=== PATIENT | female | born 1995 | race Hispanic/Latino ===

== ENCOUNTER 2018-05-17 19:12 | Emergency (ER) | payer SELFPAY ==
[2018-05-17] MEDS ORDERED: ACETAMINOPHEN 500 MG TAB ONE (20:03)
--- NOTE | 2018-05-17 20:44 | ER ---
Nurse's Notes [facility] Name: Radha Capps Age: 22 yrs Sex: Female : 1995 Arrival Date: 05/17/2018 Time: 19:13 Bed 11 Private MD: Diagnosis: Otitis externa in other diseases classified elsewhere, left ear Presentation: 05/17 19:27 Presenting complaint: Patient states: that she is having left ear pain with yellow fc drainage that started 3 days ago. Transition of care: patient was not received from another setting of care. Onset of symptoms was May 16, 2018. Risk Assessment: Do you want to hurt yourself or someone else? Patient reports no desire to harm self or others. 19:27 Method Of Arrival: Ambulatory 19:27 Acuity: HEIDI 4 19:29 Care prior to arrival: Medication(s) given: aleve taken this am. 19:45 Initial Sepsis Screen: Does the patient meet any 2 criteria? No. Patient's initial ea sepsis screen is negative. Does the patient have a suspected source of infection? No. Patient's initial sepsis screen is negative. Triage Assessment: 19:30 General: Appears uncomfortable, obese, Behavior is calm, cooperative, appropriate for age. Pain: Complains of pain in left ear Pain currently is 8 out of 10 on a pain scale. Quality of pain is described as aching, Pain began gradually, Is continuous. EENT: Reports decreased hearing in left ear pain in left ear. Neuro: Level of Consciousness is awake, alert, obeys commands, Oriented to person, place, time, situation. Cardiovascular: No deficits noted. Respiratory: No deficits noted. GI: No deficits noted. : No deficits noted. Derm: Skin is pink, warm \T\ dry. Musculoskeletal: Circulation, motion, and sensation intact. Capillary refill < 3 seconds, Range of motion: intact in all extremities. 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 - Social history:: Smoking status: Patient/guardian denies using tobacco. - Ebola Screening: : Patient negative for fever greater than or equal to 101.5 degrees Fahrenheit, and additional compatible Ebola Virus Disease symptoms Patient denies exposure to infectious person Patient denies travel to an Ebola-affected area in the 21 days before illness onset. Screenin:44 Abuse screen: Denies threats or abuse. Nutritional screening: No deficits noted. ea Tuberculosis screening: No symptoms or risk factors identified. Fall Risk None identified. Assessment: 19:47 General: Appears uncomfortable, Behavior is calm, cooperative, appropriate for age. ea Pain: Complains of pain in left ear Pain currently is 8 out of 10 on a pain scale. Quality of pain is described as aching. Neuro: Level of Consciousness is awake, alert, obeys commands, Oriented to person, place, time, situation. Cardiovascular: Patient's skin is warm and dry. Respiratory: Airway is patent Respiratory effort is even, unlabored, Respiratory pattern is regular, symmetrical. GI: No signs and/or symptoms were reported involving the gastrointestinal system. : No signs and/or symptoms were reported regarding the genitourinary system. EENT: Reports decreased hearing in left ear pain in left ear. Derm: Skin is pink, warm \T\ dry. Musculoskeletal: Circulation, motion, and sensation intact. 20:19 Reassessment: Patient and/or family updated on plan of care and expected duration. Pain ea level reassessed. Patient is alert, oriented x 3, equal unlabored respirations, skin warm/dry/pink. 20:50 Reassessment: Patient and/or family updated on plan of care and expected duration. Pain ea level reassessed. Patient is alert, oriented x 3, equal unlabored respirations, skin warm/dry/pink. Discharge instructions given to patient, verbalized the understanding of instruction. Vital Signs: 19:31 BP 128 / 77; Pulse 91; Resp 18; Temp 98.0(O); Pulse Ox 99% on R/A; Weight 131.09 kg fc (R); Height 5 ft. 5 in. (165.10 cm) (R); Pain 8/10; 20:45 BP 122 / 68; Pulse 80; Resp 18; Temp 98.2(O); Pulse Ox 99% ; Pain 5/10; ea 19:31 Body Mass Index 48.09 (131.09 kg, 165.10 cm) ED Course: 19:13 Patient arrived in ED. ds1 19:28 Triage completed. fc 19:31 Arm band placed on Patient placed in an exam room, on a stretcher. fc 19:39 Kai Orosco PA is PHCP. cp 19:39 Orlando Addison MD is Attending Physician. cp 19:44 Nicole Alexander, RN is Primary Nurse. ea 19:45 Patient has correct armband on for positive identification. Bed in low position. Call ea light in reach. 20:42 Jen Alba MD is Referral Physician. cp 20:50 Patient did not have IV access during this emergency room visit. ea 21:06 No provider procedures requiring assistance completed. ea Administered Medications: 20:08 Drug: Tylenol 1000 mg Route: PO; ea 20:31 Follow up: Response: No adverse reaction; Marked relief of symptoms ea 20:37 Not Given (not available): CIPRODEX 4 drops Otic in left ear once ea Outcome: 20:43 Discharge ordered by MD. cp 20:50 Discharged to home ambulatory. ea 20:50 Condition: improved 20:50 Discharge instructions given to patient, Instructed on discharge instructions, follow up and referral plans. medication usage, Demonstrated understanding of instructions, follow-up care, medications, Prescriptions given X 3. 21:07 Patient left the ED. ea Signatures: Sheila Bradley, RN RN Seamus Maryan ds1 Kai Orosco PA PA cp Antunez, Elena, RN LAMONT kaufman
--- NOTE | 2018-05-17 20:44 | EDPHYS ---
Physician Documentation [facility] Name: Radha Capps Age: 22 yrs Sex: Female : 1995 Arrival Date: 05/17/2018 Time: 19:13 Bed 11 Private MD: ED Physician Orlando Addison HPI: 05/17 20:15 This 22 yrs old Female presents to ER via Ambulatory with complaints of Ear cp Pain. 20:15 The patient presents with drainage, that is purulent, pain, that is acute. The cp complaints affect the left ear. 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 - Social history:: Smoking status: Patient/guardian denies using tobacco. - Ebola Screening: : Patient negative for fever greater than or equal to 101.5 degrees Fahrenheit, and additional compatible Ebola Virus Disease symptoms Patient denies exposure to infectious person Patient denies travel to an Ebola-affected area in the 21 days before illness onset. ROS: 20:25 Eyes: Negative for injury, pain, redness, and discharge. cp 20:25 Constitutional: Negative for body aches, chills, fever, poor PO intake. 20:25 ENT: Positive for drainage from ear(s), ear pain, Negative for rhinorrhea, sinus congestion, sore throat, difficulty swallowing, difficulty handling secretions, hoarseness. 20:25 Neck: Negative for pain with movement, pain at rest, stiffness, swollen nodes, tenderness, bony tenderness. 20:25 Cardiovascular: Negative for chest pain, edema, palpitations. 20:25 Respiratory: Negative for cough, shortness of breath, wheezing. 20:25 Abdomen/GI: Negative for abdominal pain, vomiting, diarrhea, constipation, black/tarry stool, rectal bleeding. 20:25 Skin: Negative for cellulitis, rash. 20:25 Neuro: Negative for altered mental status, weakness. 20:25 All other systems are negative. Exam: 20:33 Constitutional: The patient appears in no acute distress, alert, awake, non-toxic, well cp developed, well nourished, uncomfortable. 20:33 Eyes: Pupils equal round and reactive to light, extra-ocular motions intact. Lids and cp lashes normal. Conjunctiva and sclera are non-icteric and not injected. Cornea within normal limits. Periorbital areas with no swelling, redness, or edema. 20:33 Head/face: Noted is swelling, that is mild, of the left ear, tenderness, that is moderate, of the left ear. 20:33 ENT: External ear(s): pain with movement, that is moderate, of the pinna of left ear and left ear canal, swelling, on the left ear, mild, Ear canal(s): purulent discharge, in the left canal, mild, swelling, that is moderate, of the left canal, TM's: not visable, because of discharge, swelling, Examination of the other ear shows no obvious abnormality, Nose: is normal, Mouth: Lips: moist, Oral mucosa: pink and intact, moist, Tongue: is normal, Posterior pharynx: is normal, airway is patent, no erythema, no exudate. 20:33 Neck: ROM/movement: is normal, is supple, without pain, no range of motions limitations, no meningismus, no nuchal rigidity, Lymph nodes: no appreciated lymphadenopathy. Vital Signs: 19:31 BP 128 / 77; Pulse 91; Resp 18; Temp 98.0(O); Pulse Ox 99% on R/A; Weight 131.09 kg fc (R); Height 5 ft. 5 in. (165.10 cm) (R); Pain 8/10; 20:45 BP 122 / 68; Pulse 80; Resp 18; Temp 98.2(O); Pulse Ox 99% ; Pain 5/10; ea 19:31 Body Mass Index 48.09 (131.09 kg, 165.10 cm) MDM: 19:40 Patient medically screened. cp 20:00 Differential diagnosis: otitis media, otitis externa, ruptured TM, acute otalgia, cp cerumen impaction. 20:42 Data reviewed: vital signs, nurses notes, and as a result, I will discharge patient. 05/17 20:36 Order name: Urine Dipstick--Ancillary (enter results) 05/17 20:36 Order name: Urine --Ancillary (enter results) 05/17 19:52 Order name: Urine Test (obtain specimen); Complete Time: 20:25 cp 05/17 19:52 Order name: Urine Dipstick-Ancillary (obtain specimen); Complete Time: 20:25 cp 05/17 19:52 Order name: Misc. Order: ear kit; Complete Time: 20:13 cp Administered Medications: 20:08 Drug: Tylenol 1000 mg Route: PO; ea 20:31 Follow up: Response: No adverse reaction; Marked relief of symptoms ea 20:37 Not Given (not available): CIPRODEX 4 drops Otic in left ear once ea Disposition: 05/18 08:00 Co-signature as Attending Physician, Orlando Addison MD Available for consultation at ps1 all times.. Disposition: 05/17/18 20:43 Discharged to Home. Impression: Otitis externa in other diseases classified elsewhere, left ear. - Condition is Stable. - Discharge Instructions: Ear Drops, Adult, Otitis Externa. - Prescriptions for Ibuprofen 800 mg Oral Tablet - take 1 tablet by ORAL route every 8 hours As needed take with food; 30 tablet. Cipro 500 mg Oral Tablet - take 1 tablet by ORAL route every 12 hours for 10 days; 20 tablet. Ciprodex 0.3- 0.1 % Otic Drops, Suspension - instill 4 drops by OTIC route every 12 hours for 7 days , for ears ONLY. instill drops in left ear canal; 1 Container. - Medication Reconciliation Form, Thank You Letter, Antibiotic Education, Prescription Opioid Use form. - Follow up: Jen Alba MD; When: 48 Hours; Reason: Recheck today's complaints. - Problem is new. - Symptoms have improved. Signatures: Dispatcher [employer] Sheila Sandra RN RN Kai Marvin PA PA cp Antunez, Elena, RN RN Orlando Vale MD MD ps1 Corrections: (The following items were deleted from the chart) 05/17 21:07 20:43 05/17/2018 20:43 Discharged to Home. Impression: Otitis externa in other diseases ea classified elsewhere, left ear. Condition is Stable. Forms are Medication Reconciliation Form, Thank You Letter, Antibiotic Education, Prescription Opioid Use. Follow up: Jen Alba; When: 48 Hours; Reason: Recheck today's complaints. Problem is new. Symptoms have improved. cp
[2018-05-17 21:40] LABS: Urine Blood NEGATIVE (NEG); Urine Glucose NEGATIVE (NEG); Urine Protein 1+ (NEG); Urine pH 6.5 (5.0-7.0)
== END 2018-05-17 21:07 | disposition home or self-care (01) ==
LOC: ER 19:12
DX: H60.92 Unspecified otitis externa, left ear (principal)
CPT/HCPCS: 81003; 81025; 99283

== ENCOUNTER 2019-01-01 21:14 | Emergency (ER) | payer SELFPAY ==
[2019-01-01] MEDS ORDERED: FENTANYL CITR 100 MCG/2 ML ONE (22:20)
[2019-01-01] MEDS ORDERED: NA CHLORIDE 0.9% 1,000 ML ONE (22:21)
[2019-01-01] MEDS ORDERED: ONDANSETRON 4 MG/2 ML VIAL ONE (22:21)
[2019-01-01 22:42] LABS: Urine Blood NEGATIVE (NEG); Urine Glucose 2+ (NEG); Urine Protein 2+ (NEG); Urine pH 5.5 (5.0-7.0)
[2019-01-01 22:56] LABS: Absolute Lymphocytes (CBC) 2.8 K/uL (0.7-4.9); Absolute Monocytes 0.9 K/uL (0.1-1.3); Absolute Neutrophil 4.9 K/uL (1.8-8.0); Basophils % 0.2 % (0-1.3); Eosinophils % 6.4 % (0-4.4); Lymphocytes % 30.9 % (15.3-44.8); MPV 9.4 fL (7.6-11.3); Monocytes % 9.5 % (3.3-12.3); RBC Red Blood Cell Count 4.75 M/uL (3.86-4.86)
[2019-01-01 23:00] LABS: Urine Bacteria 20-50 /HPF (<20); Urine Culture Reflex Order REFLEXED; Urine RBC <5 /HPF (NONE SEEN); Urine Yeast PRESENT (NONE SEEN)
[2019-01-01 23:05] LABS: ALT/SGPT 45 U/L (12-78); AST/SGOT 66 U/L (15-37); Alkaline Phosphatase 108 U/L (45-117); BUN Blood Urea Nitrogen 8 mg/dL (7-18); Bicarbonate 23 mmol/L (21-32); Bilirubin Direct 0.1 mg/dL (0-0.2); Bilirubin Total 1.2 mg/dL (0.2-1.0); Glucose Level 315 mg/dL (74-106); Lipase 290 U/L (73-393); Potassium 4.4 mmol/L (3.5-5.1); Protein, Total 8.7 g/dL (6.4-8.2); Sodium Level 136 mmol/L (136-145)
[2019-01-01] MEDS ORDERED: KETOROLAC 30 MG/ML INJ ONE (23:59)
--- NOTE | 2019-01-02 01:12 | ER ---
Nurse's Notes [facility] Name: Radha Capps Age: 23 yrs Sex: Female : 1995 Arrival Date: 01/01/2019 Time: 21:17 Bed 24 Private MD: Diagnosis: Upper abdominal pain, unspecified Presentation: 01/01 21:27 Presenting complaint: Patient states: Today at 3:00 she made herself something to eat, aj1 since then she has had LUQ pain that radiates to the back. Patient reports diarrhea, denies N/V. Denies fever. Transition of care: patient was not received from another setting of care. Onset of symptoms was January 01, 2019 at 15:00. Risk Assessment: Do you want to hurt yourself or someone else? Patient reports no desire to harm self or others. Initial Sepsis Screen: Does the patient meet any 2 criteria? No. Patient's initial sepsis screen is negative. Does the patient have a suspected source of infection? No. Patient's initial sepsis screen is negative. Care prior to arrival: None. 21:27 Method Of Arrival: Ambulatory aj 21:27 Acuity: HEIDI 3 aj1 Triage Assessment: 21:29 General: Appears in no apparent distress. uncomfortable, Behavior is calm, cooperative, aj1 appropriate for age. Pain: Complains of pain in left upper quadrant. 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 - Social history:: Smoking status: Patient/guardian denies using tobacco. - Ebola Screening: : Patient denies travel to an Ebola-affected area in the 21 days before illness onset. Screenin:30 Abuse screen: Denies threats or abuse. Denies injuries from another. Nutritional aj1 screening: No deficits noted. Tuberculosis screening: No symptoms or risk factors identified. 01/02 01:32 Fall Risk IV access (20 points). mg2 Assessment: 01/01 21:30 General: Appears in no apparent distress. uncomfortable, Behavior is calm, cooperative, aj1 appropriate for age. Pain: Complains of pain in left upper quadrant Pain radiates to back Pain currently is 9 out of 10 on a pain scale. Quality of pain is described as stabbing, Pain began 6 hours ago. Neuro: Level of Consciousness is awake, alert, obeys commands. Cardiovascular: Patient's skin is warm and dry. Respiratory: Airway is patent Respiratory effort is even, unlabored, Respiratory pattern is regular, symmetrical. GI: Abdomen is non-distended, Bowel sounds present X 4 quads. Abd is soft X 4 quads Abdomen is tender to palpation in left upper quadrant Reports upper abdominal pain, diarrhea, Patient currently denies nausea, vomiting. : No signs and/or symptoms were reported regarding the genitourinary system. EENT: No signs and/or symptoms were reported regarding the EENT system. Derm: No signs and/or symptoms reported regarding the dermatologic system. Skin is pink, warm \T\ dry. normal. Musculoskeletal: No signs and/or symptoms reported regarding the musculoskeletal system. Circulation, motion, and sensation intact. 22:50 Reassessment: Patient appears in no apparent distress at this time. No changes from aj1 previously documented assessment. Patient and/or family updated on plan of care and expected duration. Pain level reassessed. Patient is alert, oriented x 3, equal unlabored respirations, skin warm/dry/pink. 23:37 Reassessment: Patient states that the pain medication we gave her did not bring her aj1 pain down to a tolerable level. Notified Dr Barrientos. Vital Signs: 21:29 BP 133 / 74; Pulse 116; Resp 20; Pulse Ox 98% on R/A; Weight 126.55 kg (R); Height 5 aj1 ft. 5 in. (165.10 cm) (R); Pain 9/10; 23:37 BP 117 / 65; Pulse 102; Resp 18; Pulse Ox 97% on R/A; aj1 23:51 Temp 98.1(TE); aj1 01/02 00:47 BP 116 / 61; Pulse 101; Resp 18; Pulse Ox 97% on R/A; mg2 01/01 21:29 Body Mass Index 46.43 (126.55 kg, 165.10 cm) aj ED Course: 01/01 21:17 Patient arrived in ED. am2 21:22 Mauricio Barrientos MD is Attending Physician. gs 21:27 Isis Guevara RN is Primary Nurse. aj1 21:28 Triage completed. aj1 21:29 Arm band placed on Patient placed in an exam room. aj1 21:30 Patient has correct armband on for positive identification. Bed in low position. Call aj1 light in reach. Side rails up X 1. 21:30 No provider procedures requiring assistance completed. aj1 22:30 Note: neg upt per pts nurse,michael ybarra. Radiology exam delayed due to test not mw3 completed at this time. 22:59 CT Stone Protocol In Process Unspecified. EDNJ 01/02 01:11 Roel Theodore MD is Referral Physician. 01:31 IV discontinued, intact, bleeding controlled, No redness/swelling at site. Pressure mg2 dressing applied. Administered Medications: 01/01 22:31 Drug: NS 0.9% 1000 ml Route: IV; Rate: 1 bolus; Site: right antecubital; aj1 01/02 00:29 Follow up: IV Status: Completed infusion; IV Intake: 1000ml aj1 01/01 22:32 Drug: Zofran 4 mg Route: IVP; Site: right antecubital; aj01/02 00:29 Follow up: Response: No adverse reaction aj1 01/01 22:32 Drug: fentaNYL (PF) 25 mcg Route: IVP; Site: right antecubital; aj01/02 00:30 Follow up: Response: No adverse reaction aj1 01/01 23:52 Drug: TORadol 30 mg Route: IVP; Site: right antecubital; aj01/02 00:30 Follow up: Response: No adverse reaction aj1 Intake: 00:29 IV: 1000ml; Total: 1000ml. aj1 Outcome: 01:11 Discharge ordered by . gs 01:31 Discharged to home ambulatory, with family. mg2 01:31 Condition: stable 01:31 Discharge instructions given to patient, family, Instructed on discharge instructions, follow up and referral plans. medication usage, Demonstrated understanding of instructions, follow-up care, medications, Prescriptions given X 2. 01:32 Patient left the ED. mg2 Signatures: Dispatcher [employer] [facility] Isis Guevara RN RN aj1 Yasemin Fontaine am2 Mauricio Barrientos MD MD gs Yefri Sams, RN RN mg2 Patricia Anguiano mw3
--- NOTE | 2019-01-02 01:12 | EDPHYS ---
Physician Documentation [facility] Name: Radha Capps Age: 23 yrs Sex: Female : 1995 Arrival Date: 01/01/2019 Time: 21:17 Bed 24 Private MD: ED Physician Mauricio Barrientos HPI: 01/02 01:08 This 23 yrs old Female presents to ER via Ambulatory with complaints of Flank gs Pain. 01:08 The patient complains of pain in the left low back. The pain radiates to the left lower gs quadrant. Onset: The symptoms/episode began/occurred yesterday. Modifying factors: The symptoms are alleviated by nothing. the symptoms are aggravated by nothing. Associated signs and symptoms: Pertinent positives: diarrhea. Severity of pain: At its worst the pain was moderate in the emergency department the pain is unchanged. The patient has experienced similar episodes in the past, a few times. The patient has not recently seen a physician. 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 - Social history:: Smoking status: Patient/guardian denies using tobacco. - Ebola Screening: : Patient denies travel to an Ebola-affected area in the 21 days before illness onset. ROS: 01/02 01:08 All other systems are negative. gs Exam: 01:08 Head/Face: Normocephalic, atraumatic. Eyes: Pupils equal round and reactive to light, gs extra-ocular motions intact. Lids and lashes normal. Conjunctiva and sclera are non-icteric and not injected. Cornea within normal limits. Periorbital areas with no swelling, redness, or edema. ENT: Nares patent. No nasal discharge, no septal abnormalities noted. Tympanic membranes are normal and external auditory canals are clear. Oropharynx with no redness, swelling, or masses, exudates, or evidence of obstruction, uvula midline. Mucous membranes moist. Neck: Trachea midline, no thyromegaly or masses palpated, and no cervical lymphadenopathy. Supple, full range of motion without nuchal rigidity, or vertebral point tenderness. No Meningismus. Chest/axilla: Normal chest wall appearance and motion. Nontender with no deformity. No lesions are appreciated. Cardiovascular: Regular rate and rhythm with a normal S1 and S2. No gallops, murmurs, or rubs. Normal PMI, no JVD. No pulse deficits. Respiratory: Lungs have equal breath sounds bilaterally, clear to auscultation and percussion. No rales, rhonchi or wheezes noted. No increased work of breathing, no retractions or nasal flaring. Back: No spinal tenderness. No costovertebral tenderness. Full range of motion. Skin: Warm, dry with normal turgor. Normal color with no rashes, no lesions, and no evidence of cellulitis. MS/ Extremity: Pulses equal, no cyanosis. Neurovascular intact. Full, normal range of motion. Neuro: Awake and alert, GCS 15, oriented to person, place, time, and situation. Cranial nerves II-XII grossly intact. Motor strength 5/5 in all extremities. Sensory grossly intact. Cerebellar exam normal. Normal gait. 01:08 Constitutional: The patient appears alert, awake, uncomfortable. 01:08 Abdomen/GI: Palpation: moderate abdominal tenderness, in the epigastric area, posterior aspect of left lateral abdomen and left upper quadrant, rebound tenderness, is not appreciated. Vital Signs: 01/01 21:29 BP 133 / 74; Pulse 116; Resp 20; Pulse Ox 98% on R/A; Weight 126.55 kg (R); Height 5 aj1 ft. 5 in. (165.10 cm) (R); Pain 9/10; 23:37 BP 117 / 65; Pulse 102; Resp 18; Pulse Ox 97% on R/A; aj1 23:51 Temp 98.1(TE); aj1 01/02 00:47 BP 116 / 61; Pulse 101; Resp 18; Pulse Ox 97% on R/A; mg2 01/01 21:29 Body Mass Index 46.43 (126.55 kg, 165.10 cm) aj1 MDM: 01/01 21:45 Patient medically screened. 01/02 01:08 Differential diagnosis: nephrolithiasis, pyelonephritis, UTI, diverticulitis, gs pancreatitis. Data reviewed: vital signs, nurses notes. Counseling: I had a detailed discussion with the patient and/or guardian regarding: the historical points, exam findings, and any diagnostic results supporting the discharge/admit diagnosis, lab results, radiology results, the need for outpatient follow up. Response to treatment: the patient's symptoms have markedly improved after treatment, the patient's symptoms have resolved after treatment, and as a result, I will discharge patient. 01/01 21:49 Order name: Basic Metabolic Panel; Complete Time: 23:40 01/01 21:49 Order name: CBC with Diff; Complete Time: 23:40 01/01 21:49 Order name: Hepatic Function; Complete Time: 23:40 gs 01/01 21:49 Order name: Lipase; Complete Time: 23:40 01/01 21:49 Order name: Urine Microscopic Only; Complete Time: 23:40 01/01 22:38 Order name: Urine Dipstick--Ancillary (enter results); Complete Time: 23:40 mw2 01/01 21:49 Order name: IV Saline Lock; Complete Time: 22:32 01/01 21:49 Order name: CT Stone Protocol 01/01 22:38 Order name: Urine --Ancillary (enter results); Complete Time: 23:40 mw2 01/01 23:01 Order name: Urine Culture [facility] 01/01 21:49 Order name: Labs collected and sent; Complete Time: 22:32 gs 01/01 21:49 Order name: Urine Test (obtain specimen); Complete Time: 22:32 gs 01/01 21:49 Order name: Urine Dipstick-Ancillary (obtain specimen); Complete Time: 22:32 gs Administered Medications: 01/01 22:31 Drug: NS 0.9% 1000 ml Route: IV; Rate: 1 bolus; Site: right antecubital; 01/02 00:29 Follow up: IV Status: Completed infusion; IV Intake: 1000ml 01/01 22:32 Drug: Zofran 4 mg Route: IVP; Site: right antecubital; 01/02 00:29 Follow up: Response: No adverse reaction 01/01 22:32 Drug: fentaNYL (PF) 25 mcg Route: IVP; Site: right antecubital; 01/02 00:30 Follow up: Response: No adverse reaction 01/01 23:52 Drug: TORadol 30 mg Route: IVP; Site: right antecubital; aj1 01/02 00:30 Follow up: Response: No adverse reaction aj1 Disposition: 01/02/19 01:11 Discharged to Home. Impression: Upper abdominal pain, unspecified. - Condition is Stable. - Discharge Instructions: Abdominal Pain, Adult. - Prescriptions for Bentyl 20 mg Oral Tablet - take 1 tablet by ORAL route every 12 hours As needed; 10 tablet. Pepcid 20 mg Oral Tablet - take 1 tablet by ORAL route 2 times per day; 30 tablet. - Medication Reconciliation Form, Thank You Letter, Antibiotic Education, Prescription Opioid Use form. - Follow up: Roel Theodore MD; When: 2 - 3 days; Reason: Re-evaluation by your physician. Signatures: Dispatcher [employer] Isis Gonzalez RN RN aj1 Mauricio Barrientos MD MD gs Yefri Sams RN RN mg2 Corrections: (The following items were deleted from the chart) 01:32 01:11 01/02/2019 01:11 Discharged to Home. Impression: Upper abdominal pain, mg2 unspecified. Condition is Stable. Forms are Medication Reconciliation Form, Thank You Letter, Antibiotic Education, Prescription Opioid Use. Follow up: Roel Theodore; When: 2 - 3 days; Reason: Re-evaluation by your physician. gs
--- NOTE | 2019-01-02 15:24 | RAD REPORT ---
EXAM DESCRIPTION: Stone Protocol. CLINICAL HISTORY: 23 years Female FLANK PAIN. COMPARISON: None. TECHNIQUE: Images obtained in axial, sagittal, and coronal planes. No oral or intravenous contrast was administe red. This exam was performed according to our departmental dose-optimization program, which includes autom ated exposure control, adjustment of the mA and/or kV according to patient size and/or less of iterat tano reconstruction technique. FINDINGS: Enlarged liver with decreased attenuation consistent with fatty change. Multiple calcified gallstones within the gallbladder. No associated gallbladder wall thickening. Spleen is enlarged vivian suring 14 cm in greatest dimension. Unremarkable pancreas and adrenal glands bilaterally. No obstructing renal calcifications bilaterally. No hydronephrosis bilaterally. Unremarkable bladder. Appendix is not well identified however no secondary signs for appendicitis. No bowel obstruction, pe rforation, or inflammation. No dilatation abdominal aorta. No adenopathy or abdominal fluid collections seen. No acute osseous abnormality. No abnormalities of the lower lungs bilaterally. IMPRESSION: Hepatosplenomegaly with fatty change involving the liver. Cholelithiasis. Electronically signed by: Elizabeth Vazquez MD 01/01/2019 11:12 PM STUDENT ADVISOR Due to temporary technical issues with the PACS/Fluency reporting system, reports are being signed by the in house radiologist as a courtesy to ensure prompt reporting. The interpreting radiologist is f ully responsible for the content of the report.
== END 2019-01-02 01:32 | disposition home or self-care (01) ==
LOC: ER 21:14
DX: R10.10 Upper abdominal pain, unspecified (principal)
CPT/HCPCS: 36415; 74176; 76377; 80048; 80076; 81003; 81015; 81025; 83690; 85025; 87086; 87088; 96361; 96374; 96375; 99283; J2405; J3010; J7030

== ENCOUNTER 2019-01-02 22:11 | Emergency (ER) | payer SELFPAY ==
[2019-01-02] MEDS ORDERED: ONDANSETRON 4 MG/2 ML VIAL ONE (23:42)
[2019-01-02] MEDS ORDERED: FENTANYL CITR 100 MCG/2 ML ONE (23:42)
[2019-01-02] MEDS ORDERED: NA CHLORIDE 0.9% 1,000 ML ONE (23:42)
[2019-01-03 00:02] LABS: Absolute Lymphocytes (CBC) 1.8 K/uL (0.7-4.9); Absolute Monocytes 0.6 K/uL (0.1-1.3); Absolute Neutrophil 10.2 K/uL (1.8-8.0); Basophils % 0.8 % (0-1.3); Eosinophils % 0.2 % (0-4.4); Hematocrit 40.9 % (36.0-45.0); Lymphocytes % 14.1 % (15.3-44.8); MPV 10.7 fL (7.6-11.3); Monocytes % 4.5 % (3.3-12.3); RBC Red Blood Cell Count 4.82 M/uL (3.86-4.86)
[2019-01-03 02:10] LABS: ALT/SGPT 32 U/L (12-78); AST/SGOT 24 U/L (15-37); Albumin 3.6 g/dL (3.4-5.0); Alkaline Phosphatase 103 U/L (45-117); BUN Blood Urea Nitrogen 5 mg/dL (7-18); Bicarbonate 13 mmol/L (21-32); Bilirubin Direct 0.4 mg/dL (0-0.2); Bilirubin Total 1.8 mg/dL (0.2-1.0); Glucose Level 305 mg/dL (74-106); Lipase 740 U/L (73-393); Protein, Total 8.3 g/dL (6.4-8.2); Sodium Level 135 mmol/L (136-145)
[2019-01-03] MEDS ORDERED: ONDANSETRON 4 MG/2 ML VIAL ONE (02:15)
[2019-01-03] MEDS ORDERED: HYDROMORPHONE HCL 2 MG/ML inj ONE ×2 (02:15→05:31)
[2019-01-03] MEDS ORDERED: NA CHLORIDE 0.9% 1,000 ML ONE ×2 (02:15→04:05)
[2019-01-03] MEDS ORDERED: INSULIN -REGULAR HUMAN 50 UNIT/0.5 ML ML ONE (04:00)
[2019-01-03] MEDS ORDERED: NA CHLORIDE 0.9% 100 ML IV ONE (04:01)
--- NOTE | 2019-01-03 04:03 | ER ---
Nurse's Notes [facility] Name: Radha Capps Age: 23 yrs Sex: Female : 1995 Arrival Date: 01/02/2019 Time: 22:37 Bed 19 Private MD: Diagnosis: Acute pancreatitis;Type 1 diabetes mellitus with ketoacidosis Presentation: 01/02 22:45 Presenting complaint: Patient states: that she is having upper abd pain, nausea, fc vomiting and fever that started 2 days ago. Was here yesterday and she states "I was told nothing was wrong but given 2 medications: Dicyclomine and famotidine.". Transition of care: patient was not received from another setting of care. Onset of symptoms was January 01, 2019. Risk Assessment: Do you want to hurt yourself or someone else? Patient reports no desire to harm self or others. Initial Sepsis Screen: Does the patient meet any 2 criteria? HR > 90 bpm. Yes Does the patient have a suspected source of infection? No. Patient's initial sepsis screen is negative. Care prior to arrival: Medication(s) given: Tylenol, last at 1800. 22:45 Method Of Arrival: Ambulatory fc 22:45 Acuity: HEIDI 3 fc POWER ENGINEER: 22:48 LMP 01/02/2019 fc Historical: - Allergies: 22:48 No Known Allergies; fc - Home Meds: 22:48 None [Active]; fc - PMHx: 22:48 None; fc - PSHx: 22:48 Tonsillectomy; ; fc - Immunization history:: Last tetanus immunization: unknown, Flu vaccine is not up to date. - Social history:: Smoking status: Patient/guardian denies using tobacco. - Ebola Screening: : Patient negative for fever greater than or equal to 101.5 degrees Fahrenheit, and additional compatible Ebola Virus Disease symptoms Patient denies exposure to infectious person Patient denies travel to an Ebola-affected area in the 21 days before illness onset. Screenin/05 00:00 Abuse screen: Denies threats or abuse. Nutritional screening: No deficits noted. jb4 Tuberculosis screening: No symptoms or risk factors identified. Fall Risk None identified. Assessment: 01/02 23:05 General: Appears in no apparent distress. uncomfortable, Behavior is calm, cooperative, jb4 appropriate for age. Pain: Complains of pain in abdomen Pain does not radiate. Pain currently is 9 out of 10 on a pain scale. Quality of pain is described as crampy. Neuro: Level of Consciousness is awake, alert, obeys commands, Oriented to person, place, time, situation. Cardiovascular: Patient's skin is warm and dry. Respiratory: Airway is patent Respiratory effort is even, unlabored, Respiratory pattern is regular, symmetrical. GI: Bowel sounds present X 4 quads. Abd is soft X 4 quads Abd is non tender in right upper quadrant and right lower quadrant Abdomen is tender to palpation in epigastric area, umbilical area, left upper quadrant and left lower quadrant. : No signs and/or symptoms were reported regarding the genitourinary system. EENT: No signs and/or symptoms were reported regarding the EENT system. Derm: Skin is intact, Skin is pink, warm \\T\\ dry. Musculoskeletal: Circulation, motion, and sensation intact. 01/03 00:00 Reassessment: Patient appears in no apparent distress at this time. Patient and/or jb4 family updated on plan of care and expected duration. Pain level reassessed. Patient is alert, oriented x 3, equal unlabored respirations, skin warm/dry/pink. 01:00 Reassessment: Patient appears in no apparent distress at this time. Patient and/or jb4 family updated on plan of care and expected duration. Pain level reassessed. Patient is alert, oriented x 3, equal unlabored respirations, skin warm/dry/pink. 02:00 Reassessment: Patient appears in no apparent distress at this time. Patient and/or jb4 family updated on plan of care and expected duration. Pain level reassessed. Patient is alert, oriented x 3, equal unlabored respirations, skin warm/dry/pink. 03:00 Reassessment: Patient appears in no apparent distress at this time. Patient and/or jb4 family updated on plan of care and expected duration. Pain level reassessed. Patient is alert, oriented x 3, equal unlabored respirations, skin warm/dry/pink. 04:00 Reassessment: Patient appears in no apparent distress at this time. Patient and/or jb4 family updated on plan of care and expected duration. Pain level reassessed. Patient is alert, oriented x 3, equal unlabored respirations, skin warm/dry/pink. 05:00 Reassessment: Patient appears in no apparent distress at this time. Patient and/or jb4 family updated on plan of care and expected duration. Pain level reassessed. Patient is alert, oriented x 3, equal unlabored respirations, skin warm/dry/pink. 05:37 Reassessment: Patient appears in no apparent distress at this time. Patient and/or jb4 family updated on plan of care and expected duration. Pain level reassessed. Patient is alert, oriented x 3, equal unlabored respirations, skin warm/dry/pink. Pt transported out via EMS. Vital Signs: 01/02 22:48 BP 126 / 81; Pulse 130; Resp 22; Temp 99.9(O); Pulse Ox 97% on R/A; Weight 124.28 kg fc (R); Height 5 ft. 5 in. (165.10 cm) (R); Pain 10/10; 23:00 BP 125 / 78; Pulse 122; Resp 16; Pulse Ox 98% on R/A; jb4 01/03 01:00 BP 115 / 79; Pulse 120; Resp 16; Pulse Ox 95% on R/A; jb4 03:00 BP 107 / 78; Pulse 122; Resp 16; Pulse Ox 97% on R/A; jb4 04:00 BP 119 / 72; Pulse 133; Resp 18; Pulse Ox 96% on R/A; jb4 05:00 BP 122 / 75; Pulse 86; Resp 16; Pulse Ox 97% on R/A; jb4 01/02 22:48 Body Mass Index 45.60 (124.28 kg, 165.10 cm) ED Course: 01/02 22:37 Patient arrived in ED. es 22:44 Mauricio Barrientos MD is Attending Physician. gs 22:47 Triage completed. fc 22:48 Arm band placed on Patient placed in an exam room, on a stretcher. 23:01 Keven David, LAMONT is Primary Nurse. [facility] 23:50 Missed attempt(s): 20 gauge in right antecubital area. mt 01/03 00:00 Patient has correct armband on for positive identification. Bed in low position. Call jb4 light in reach. Side rails up X 1. Pulse ox on. NIBP on. 00:27 Inserted saline lock: 20 gauge in left antecubital area, using aseptic technique. bb 02:11 Notified ED physician of a critical lab result(s). Bicarb 13 Dr Barrientos notified. bb 02:17 Keven David, RN is Primary Nurse. jb4 02:41 CT Abd/Pelvis - W/Contrast In Process Unspecified. EDMS 05:39 No provider procedures requiring assistance completed. Patient transferred, IV remains jb4 in place. Administered Medications: 00:27 Drug: NS 0.9% 1000 ml Route: IV; Rate: 1 bolus; Site: left antecubital; bb 03:27 Follow up: Response: No adverse reaction; IV Status: Completed infusion jb4 00:47 Drug: Zofran 4 mg Route: IVP; Site: left antecubital; jb4 01:29 Follow up: Response: No adverse reaction; Nausea is decreased jb4 00:49 Drug: fentaNYL (PF) 50 mcg Route: IVP; Site: left antecubital; jb4 01:29 Follow up: Response: No adverse reaction; Pain is decreased jb4 02:10 Drug: Zofran 4 mg Route: IVP; Site: left antecubital; jb4 03:16 Follow up: Response: No adverse reaction; Nausea is decreased jb4 02:12 Drug: Dilaudid 1 mg Route: IVP; Site: left antecubital; jb4 03:16 Follow up: Response: No adverse reaction; Pain is decreased jb4 03:30 Drug: NS 0.9% 1000 ml Route: IV; Rate: 1 bolus; Site: left antecubital; jb4 05:35 Follow up: Response: No adverse reaction; IV Status: Completed infusion jb4 04:00 Drug: cefOXitin 1 grams Route: IVPB; Infused Over: 30 mins; Site: left antecubital; jb4 04:02 Follow up: Response: No adverse reaction; IV Status: Completed infusion jb4 04:02 Drug: NS 0.9% 1000 ml Route: IV; Rate: 175 ml/hr; Site: left antecubital; jb4 05:35 Follow up: Response: No adverse reaction; IV Status: Infusion continued upon transfer jb4 04:20 Drug: Insulin Drip - (Insulin Regular Human 100 units, NS 0.9% 100 ml) {Co-Signature: jb4 aa1 (Marisela Juarez RN).} Route: IV; Rate: 6 units/hr; Site: left antecubital; 05:35 Follow up: Response: No adverse reaction; IV Status: Infusion continued upon transfer jb4 05:20 Drug: Dilaudid 1 mg Route: IVP; Site: left antecubital; jb4 05:36 Follow up: Response: No adverse reaction jb4 Point of Care Testing: Blood Glucose: 03:28 Blood Glucose: 297 mg/dL; jb4 04:00 Blood Glucose: 298 mg/dL; jb4 05:20 Blood Glucose: 264 mg/dL; jb4 Ranges: Outcome: 04:02 ER care complete, transfer ordered by MD. patterson 05:39 Transferred to [facility]. jb4 05:39 Condition: stable 05:39 Discharge instructions given to patient, Instructed on the need for transfer, Demonstrated understanding of instructions. 05:40 Patient left the ED. jb4 Signatures: Dispatcher [employer] Beatriz Grande Felicia, RN RN fc Ballard, Brenda, RN RN bb Bryson, James, RN RN jb4 Janene Willson mt, Gregory, MD MD gs Alissa Kern RN aa1 Corrections: (The following items were deleted from the chart) 03:37 02/04 22:45 Presenting complaint: Patient states: that she is having upper abd pain, fc nausea, vomiting and fever. Was here yesterday and told nothing was wrong but given Dicyclomine and famotidine fc
--- NOTE | 2019-01-03 04:03 | EDPHYS ---
Physician Documentation [facility] Name: Radha Capps Age: 23 yrs Sex: Female : 1995 Arrival Date: 01/02/2019 Time: 22:37 Bed 19 Private MD: ED Physician Mauricio Barrientos HPI: 01/03 03:38 This 23 yrs old Female presents to ER via Ambulatory with complaints of gs Abdominal Pain, Vomiting, Fever. 03:38 The patient presents to the emergency department with nausea, vomiting, diarrhea. gs Onset: The symptoms/episode began/occurred 2 day(s) ago, and became worse. Possible causes: unknown. The symptoms are aggravated by nothing. The symptoms are alleviated by nothing. Associated signs and symptoms: Pertinent positives: fever. Severity of symptoms: At their worst the symptoms were severe in the emergency department the symptoms are unchanged. The patient has not experienced similar symptoms in the past. The patient has been recently seen at the [facility] Emergency Department, yesterday. 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 - Social history:: Smoking status: Patient/guardian denies using tobacco. - Ebola Screening: : Patient negative for fever greater than or equal to 101.5 degrees Fahrenheit, and additional compatible Ebola Virus Disease symptoms Patient denies exposure to infectious person Patient denies travel to an Ebola-affected area in the 21 days before illness onset. ROS: 01/03 03:38 All other systems are negative. gs Exam: 03:38 Head/Face: Normocephalic, atraumatic. Eyes: Pupils equal round and reactive to light, gs extra-ocular motions intact. Lids and lashes normal. Conjunctiva and sclera are non-icteric and not injected. Cornea within normal limits. Periorbital areas with no swelling, redness, or edema. ENT: Nares patent. No nasal discharge, no septal abnormalities noted. Tympanic membranes are normal and external auditory canals are clear. Oropharynx with no redness, swelling, or masses, exudates, or evidence of obstruction, uvula midline. Mucous membranes moist. Neck: Trachea midline, no thyromegaly or masses palpated, and no cervical lymphadenopathy. Supple, full range of motion without nuchal rigidity, or vertebral point tenderness. No Meningismus. Chest/axilla: Normal chest wall appearance and motion. Nontender with no deformity. No lesions are appreciated. 03:38 Respiratory: Lungs have equal breath sounds bilaterally, clear to auscultation and percussion. No rales, rhonchi or wheezes noted. No increased work of breathing, no retractions or nasal flaring. Back: No spinal tenderness. No costovertebral tenderness. Full range of motion. Skin: Warm, dry with normal turgor. Normal color with no rashes, no lesions, and no evidence of cellulitis. MS/ Extremity: Pulses equal, no cyanosis. Neurovascular intact. Full, normal range of motion. Neuro: Awake and alert, GCS 15, oriented to person, place, time, and situation. Cranial nerves II-XII grossly intact. Motor strength 5/5 in all extremities. Sensory grossly intact. Cerebellar exam normal. Normal gait. 03:38 Constitutional: The patient appears alert, awake, uncomfortable. 03:38 Cardiovascular: Rate: tachycardic, Rhythm: regular, Pulses: no pulse deficits are appreciated. 03:38 Abdomen/GI: Palpation: mild abdominal tenderness, in the suprapubic area, left upper quadrant and left lower quadrant. Vital Signs: 01/02 22:48 BP 126 / 81; Pulse 130; Resp 22; Temp 99.9(O); Pulse Ox 97% on R/A; Weight 124.28 kg fc (R); Height 5 ft. 5 in. (165.10 cm) (R); Pain 10/10; 23:00 BP 125 / 78; Pulse 122; Resp 16; Pulse Ox 98% on R/A; jb4 01/03 01:00 BP 115 / 79; Pulse 120; Resp 16; Pulse Ox 95% on R/A; jb4 03:00 BP 107 / 78; Pulse 122; Resp 16; Pulse Ox 97% on R/A; jb4 04:00 BP 119 / 72; Pulse 133; Resp 18; Pulse Ox 96% on R/A; jb4 05:00 BP 122 / 75; Pulse 86; Resp 16; Pulse Ox 97% on R/A; jb4 01/02 22:48 Body Mass Index 45.60 (124.28 kg, 165.10 cm) fc MDM: 01/02 23:21 Patient medically screened. 01/03 03:38 Differential diagnosis: gastritis, pancreatitis, diverticulitis, viral gastroenteritis. Data reviewed: vital signs, nurses notes. Counseling: I had a detailed discussion with the patient and/or guardian regarding: the historical points, exam findings, and any diagnostic results supporting the discharge/admit diagnosis, lab results, radiology results, the need to transfer to another facility. Response to treatment: the patient's symptoms have mildly improved after treatment. Physician consultation: Javi Ash MD after a discussion of the case, a recommendation for transfer for higher level of care is made, pt may need pancreatic drainage. 01/02 23:24 Order name: Basic Metabolic Panel; Complete Time: 02:28 01/02 23:24 Order name: CBC with Diff; Complete Time: 01:29 01/02 23:24 Order name: Hepatic Function; Complete Time: 02:28 01/02 23:24 Order name: Lipase; Complete Time: 02:28 01/03 02:29 Order name: Urine Microscopic Only 01/03 02:37 Order name: Blood Culture* 01/03 01:36 Order name: CT Abd/Pelvis - W/Contrast 01/03 02:37 Order name: Lactate 01/02 23:24 Order name: IV Saline Lock; Complete Time: 00:42 01/02 23:24 Order name: Labs collected and sent; Complete Time: 23:50 01/03 02:29 Order name: Urine Dipstick-Ancillary (obtain specimen); Complete Time: 03:16 Administered Medications: 00:27 Drug: NS 0.9% 1000 ml Route: IV; Rate: 1 bolus; Site: left antecubital; bb 03:27 Follow up: Response: No adverse reaction; IV Status: Completed infusion jb4 00:47 Drug: Zofran 4 mg Route: IVP; Site: left antecubital; jb4 01:29 Follow up: Response: No adverse reaction; Nausea is decreased jb4 00:49 Drug: fentaNYL (PF) 50 mcg Route: IVP; Site: left antecubital; jb4 01:29 Follow up: Response: No adverse reaction; Pain is decreased jb4 02:10 Drug: Zofran 4 mg Route: IVP; Site: left antecubital; jb4 03:16 Follow up: Response: No adverse reaction; Nausea is decreased jb4 02:12 Drug: Dilaudid 1 mg Route: IVP; Site: left antecubital; jb4 03:16 Follow up: Response: No adverse reaction; Pain is decreased jb4 03:30 Drug: NS 0.9% 1000 ml Route: IV; Rate: 1 bolus; Site: left antecubital; jb4 05:35 Follow up: Response: No adverse reaction; IV Status: Completed infusion jb4 04:00 Drug: cefOXitin 1 grams Route: IVPB; Infused Over: 30 mins; Site: left antecubital; jb4 04:02 Follow up: Response: No adverse reaction; IV Status: Completed infusion jb4 04:02 Drug: NS 0.9% 1000 ml Route: IV; Rate: 175 ml/hr; Site: left antecubital; jb4 05:35 Follow up: Response: No adverse reaction; IV Status: Infusion continued upon transfer jb4 04:20 Drug: Insulin Drip - (Insulin Regular Human 100 units, NS 0.9% 100 ml) {Co-Signature: Eddie aa1 (Marisela Juarez RN).} Route: IV; Rate: 6 units/hr; Site: left antecubital; 05:35 Follow up: Response: No adverse reaction; IV Status: Infusion continued upon transfer jb4 05:20 Drug: Dilaudid 1 mg Route: IVP; Site: left antecubital; jb4 05:36 Follow up: Response: No adverse reaction 4 Point of Care Testing: Blood Glucose: 03:28 Blood Glucose: 297 mg/dL; jb4 04:00 Blood Glucose: 298 mg/dL; jb4 05:20 Blood Glucose: 264 mg/dL; jb4 Ranges: Critical Glucose Levels:Adult <50 mg/dl or >400 mg/dl <40 mg/dl or >180 mg/dl Disposition: 01/03/19 04:02 Transfer ordered to [facility]. Diagnosis are Acute pancreatitis, Type 1 diabetes mellitus with ketoacidosis. - Reason for transfer: Higher level of care. - Accepting physician is omranian. - Condition is Stable. - Problem is new. - Symptoms have improved. Critical care time excluding procedures: 03:38 Critical care time: Bedside Care: 10 minutes, Consultation: 10 minutes, Family gs Intervention: 10 minutes. Total time: 30 minutes Signatures: Dispatcher [employer] Sheila Sandra, RN RN Leticia Solano RN RN Keven White RN RN jb4 Mauricio Barrientos MD MD gs Marisela Juarez RN aa1 Corrections: (The following items were deleted from the chart) 05:40 04:02 01/03/2019 04:02 Transfer ordered to [facility]. Diagnosis is jb4 Acute pancreatitis; Type 1 diabetes mellitus with ketoacidosis. Reason for transfer: Higher level of care. Accepting physician is omranian. Condition is Stable. Problem is new. Symptoms have improved. gs
[2019-01-03] MEDS ORDERED: CEFOXITIN/SWI 1gm 1 GM/10 ML SYR ONE (04:14)
[2019-01-03 04:18] LABS: Urine Bacteria <20 /HPF (<20); Urine Culture Reflex Order NOT NEEDED; Urine RBC <5 /HPF (NONE SEEN)
--- NOTE | 2019-01-03 21:07 | RAD REPORT ---
EXAM DESCRIPTION: CT - Abdomen Pelvis W Contrast - 01/03/2019 3:12 am CLINICAL HISTORY: The patient is 23 years old and is Female; ABD PAIN TECHNIQUE: Axial computed tomography images of the abdomen and pelvis with intravenous contrast. Sag ittal and coronal reformatted images were created and reviewed. This CT exam was performed using one or more of the following dose reduction techniques: Automated exposure control, adjustment of the mA and/or kV according to patient size, and/or use of iterative reconstruction technique. COMPARISON: CT abdomen and pelvis with IV contrast dated January 01, 2019. FINDINGS: LUNG BASES: Unremarkable. No mass. No consolidation. ABDOMEN: LIVER: Re-demonstration of diffuse hypo attenuation of the liver parenchyma. GALLBLADDER AND BILE DUCTS: Calcified gallstones are seen in the gallbladder neck. No pericholecystic fluid or gallbladder wall thickening. PANCREAS: There is moderate peripancreatic stranding and thickening of the pancreatic parenchyma. No ductal dilatation. Findings involve predominately the region of the head and tail. There is fascial t hickening of the Left Terrell's fascia. SPLEEN: Unremarkable. No splenomegaly. ADRENALS: Unremarkable. No mass. KIDNEYS AND URETERS: Unremarkable. No solid mass. No hydronephrosis. STOMACH AND BOWEL: Unremarkable. No obstruction. No mucosal thickening. PELVIS: APPENDIX: The appendix is seen and is within normal limits. BLADDER: Unremarkable. No mass. REPRODUCTIVE: Unchanged bilateral adnexal cystic changes measuring up to 3.6 cm on the right and 2.6 cm left. ABDOMEN and PELVIS: INTRAPERITONEAL SPACE: Unremarkable. No free air. No significant fluid collection. BONE/JOINTS: No acute fracture. No dislocation. SOFT TISSUES: Small fat-containing umbilical hernia. VASCULATURE: Unremarkable. No abdominal aortic aneurysm. LYMPH NODES: Unremarkable. No enlarged lymph nodes. IMPRESSION: 1. Diffuse peripancreatic fat stranding and thickening of the pancreas withy fluid colle ction inferior to the pancreatic tail. Constellation of findings highly concerning for acute pancreat itis and acute peripancreatic collection. No focal pancreatic hypoenhancement of pseudocyst formation . 2. Unchanged hepatic steatosis. 3. Bilateral adnexal cystic changes. No follow-up imaging is recommended. Reference: US recommendations based on Radiology 2010 Sep;256(3):943-54; CT/MR recommendations based on J Am Jennifer Radiol 201;10:675-681. 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 The interpreting radiologist is f ully responsible for the content of the report.
== END 2019-01-03 05:40 | disposition short-term general hospital (02) ==
LOC: ER 22:11
DX: K85.90 Acute pancreatitis without necrosis or infection, unspecified (principal); E10.10 Type 1 diabetes mellitus with ketoacidosis without coma
CPT/HCPCS: 36415; 74177; 80048; 80076; 81015; 82962; 83605; 83690; 85025; 87040; 96361; 96365; 96375; 99285; J1170; J2405; J3010; J7030; Q9967

== ENCOUNTER 2019-03-11 23:45 | Emergency (ER) | payer OTHER ==
--- OUTSIDE RECORDS SUMMARY | 2019-03-11 23:48 | XMS REPORT | Clinical Summary ---
:1995 Author Organization [facility] Address [address] [place] [address] Care Team Providers Name Role Phone Unavailable Primary Care Provider Unavailable Allergies No Known Allergies Medications Medication Sig Dispensed Refills Start Date End Date Status omega Take 1 capsule 60 capsule 0 01/07/2019 Active 1-ptm-ghf-fish (1,000 mg total) by oil 300-1,000 mg mouth 2 (two) times CpDR per capsule daily. insulin NPH 20 units sub Q in am 10 mL 0 01/07/2019 Active (HUMULIN N) 100 and 15 units PM.. unit/mL injection insulin regular Inject 0.05 mLs (5 10 mL 0 01/07/2019 Active (HUMULIN Units total) R,NOVOLIN R) 100 subcutaneously 3 unit/mL injection (three) times daily before meals Use as directed. traMADol (ULTRAM) Take 1 tablet (50 mg 30 tablet 0 01/07/2019 01/17/2019 50 mg tablet total) by mouth every 6 (six) hours as needed for Pain for up to 10 days. Max Daily Amount: 200 mg gemfibrozil Take 1 tablet (600 60 tablet 0 01/07/2019 02/06/2019 (LOPID) 600 MG mg total) by mouth 2 tablet (two) times daily before meals for 30 days. Active Problems Problem Noted Date Starvation ketoacidosis 01/04/2019 Acute pancreatitis 01/04/2019 Overview: Hypertriglyceridemia-induced acute pancreatitis Hypertriglyceridemia 01/04/2019 Class 3 severe obesity due to excess calories in adult 01/04/2019 DKA (diabetic ketoacidoses) 01/03/2019 Encounters Date Type Specialty Care Team Description 01/03/2019 - Hospital Encounter General Internal Hannah Helms, Diabetic ketoacidosis without coma associated with type 2 diabetes mellitus (HCC); 01/07/2019 Medicine Metabolic acidosis; Lenin Tellez Other acute pancreatitis without infection or necrosis; MD Daisy Hypertriglyceridemia; Johnny Ravi ketoacidosis; MD Martin Type 2 diabetes mellitus treated with insulin ([facility]) 01/03/2019 Travel after 03/10/2018 Social History Tobacco Use Types Packs/Day Years Used Date Former Smoker Cigarettes 4 Quit: 11/29/2016 Smokeless Tobacco: Never Used Comments: 3 cigarettes a day Alcohol Use Drinks/Week oz/Week Comments No Alcohol Habits Answer Date Recorded How often do you have a drink containing alcohol? Never 01/03/2019 How many drinks containing alcohol do you have on a typical Not asked day when you are drinking? How often do you have six or more drinks on one occasion? Not asked Education Answer Date Recorded What is the highest level of school you have completed or 11th grade 2018 the highest degree you have received? Sex Assigned at Date Recorded Not on file Job Start Date Occupation Industry Not on file Not on file Not on file Travel History Travel Start Travel End No recent travel history available. Last Filed Vital Signs Vital Sign Reading Time Taken Blood Pressure 117/58 01/07/2019 11:59 AM [employer] Pulse 86 01/07/2019 11:59 AM [employer] Temperature 36.6 C (97.8 F) 01/07/2019 11:59 AM [employer] Respiratory Rate 20 01/07/2019 11:59 AM [employer] Oxygen Saturation 94% 01/07/2019 11:59 AM [employer] Inhaled Oxygen Concentration - - Weight 126 kg (277 lb 11.2 oz) 01/07/2019 4:40 AM [employer] Height 165.1 cm (5' 5") 01/07/2019 4:40 AM [employer] Body Mass Index 46.21 01/07/2019 4:40 AM [employer] Plan of Treatment Not on file Procedures Procedure Name Priority Date/Time Associated Comments Diagnosis RHYTHM STRIP - SCAN 01/19/2019 10:30 AM [employer] POCT-GLUCOSE METER Routine 01/07/2019 12:02 Results for this PM [employer] procedure are in the results section. POCT-GLUCOSE METER Routine 01/07/2019 8:51 Results for this AM [employer] procedure are in the results section. CBC W/PLT COUNT & AUTO Routine 01/07/2019 4:41 Results for this DIFFERENTIAL AM [employer] procedure are in the results section. PHOSPHORUS Routine 01/07/2019 4:41 Results for this AM [employer] procedure are in the results section. MAGNESIUM Routine 01/07/2019 4:41 Results for this AM [employer] procedure are in the results section. COMPREHENSIVE Routine 01/07/2019 4:41 Results for this METABOLIC PANEL AM [employer] procedure are in the results section. CBC W/PLT COUNT & AUTO Routine 01/07/2019 4:41 Results for this DIFFERENTIAL AM [employer] procedure are in the results section. POCT-GLUCOSE METER Routine 01/06/2019 10:47 Results for this PM [employer] procedure are in the results section. POCT-GLUCOSE METER Routine 01/06/2019 6:52 Results for this PM [employer] procedure are in the results section. POCT-GLUCOSE METER Routine 01/06/2019 1:13 Results for this PM [employer] procedure are in the results section. POCT-GLUCOSE METER Routine 01/06/2019 11:02 Results for this AM [employer] procedure are in the results section. POCT-GLUCOSE METER Routine 01/06/2019 10:03 Results for this AM [employer] procedure are in the results section. POCT-GLUCOSE METER Routine 01/06/2019 9:02 Results for this AM [employer] procedure are in the results section. POCT-GLUCOSE METER Routine 01/06/2019 7:37 Results for this AM [employer] procedure are in the results section. POCT-GLUCOSE METER Routine 01/06/2019 5:10 Results for this AM [employer] procedure are in the results section. CBC W/PLT COUNT & AUTO Routine 01/06/2019 4:27 Results for this DIFFERENTIAL AM [employer] procedure are in the results section. COMPREHENSIVE Routine 01/06/2019 4:27 Results for this METABOLIC PANEL AM [employer] procedure are in the results section. PHOSPHORUS STAT 01/06/2019 4:27 Results for this AM [employer] procedure are in the results section. CBC W/PLT COUNT & AUTO Routine 01/06/2019 4:27 Results for this DIFFERENTIAL AM [employer] procedure are in the results section. MAGNESIUM Routine 01/06/2019 4:27 Results for this AM [employer] procedure are in the results section. POCT-GLUCOSE METER Routine 01/06/2019 4:20 Results for this AM [employer] procedure are in the results section. POCT-GLUCOSE METER Routine 01/06/2019 3:14 Results for this AM [employer] procedure are in the results section. MR ABDOMEN WO CONTRAST STAT 01/06/2019 3:09 Results for this MRCP AM [employer] procedure are in the results section. POCT-GLUCOSE METER Routine 01/06/2019 12:50 Results for this AM [employer] procedure are in the results section. BASIC METABOLIC PANEL Routine 01/06/2019 12:10 Results for this (7) AM [employer] procedure are in the results section. PHOSPHORUS Routine 01/06/2019 12:10 Results for this AM [employer] procedure are in the results section. MAGNESIUM Routine 01/06/2019 12:10 Results for this AM [employer] procedure are in the results section. POCT-GLUCOSE METER Routine 01/05/2019 10:54 Results for this PM [employer] procedure are in the results section. POCT-GLUCOSE METER Routine 01/05/2019 10:15 Results for this PM [employer] procedure are in the results section. POCT-GLUCOSE METER Routine 01/05/2019 8:00 Results for this PM [employer] procedure are in the results section. BASIC METABOLIC PANEL Routine 01/05/2019 7:36 Results for this (7) PM [employer] procedure are in the results section. PHOSPHORUS Routine 01/05/2019 7:36 Results for this PM [employer] procedure are in the results section. MAGNESIUM Routine 01/05/2019 7:36 Results for this PM [employer] procedure are in the results section. POCT-GLUCOSE METER Routine 01/05/2019 7:21 Results for this PM [employer] procedure are in the results section. POCT-GLUCOSE METER Routine 01/05/2019 6:12 Results for this PM [employer] procedure are in the results section. POCT-GLUCOSE METER Routine 01/05/2019 5:07 Results for this PM [employer] procedure are in the results section. POCT-GLUCOSE METER Routine 01/05/2019 4:30 Results for this PM [employer] procedure are in the results section. POCT-GLUCOSE METER Routine 01/05/2019 3:11 Results for this PM [employer] procedure are in the results section. POCT-GLUCOSE METER Routine 01/05/2019 2:16 Results for this PM [employer] procedure are in the results section. POCT-GLUCOSE METER Routine 01/05/2019 1:11 Results for this PM [employer] procedure are in the results section. PHOSPHORUS Routine 01/05/2019 12:26 Results for this PM [employer] procedure are in the results section. MAGNESIUM Routine 01/05/2019 12:26 Results for this PM [employer] procedure are in the results section. BASIC METABOLIC PANEL Routine 01/05/2019 12:26 Results for this (7) PM [employer] procedure are in the results section. POCT-GLUCOSE METER Routine 01/05/2019 11:08 Results for this AM [employer] procedure are in the results section. POCT-GLUCOSE METER Routine 01/05/2019 8:58 Results for this AM [employer] procedure are in the results section. POCT-GLUCOSE METER Routine 01/05/2019 8:12 Results for this AM [employer] procedure are in the results section. POCT-GLUCOSE METER Routine 01/05/2019 7:18 Results for this AM [employer] procedure are in the results section. POCT-GLUCOSE METER Routine 01/05/2019 6:09 Results for this AM [employer] procedure are in the results section. CBC W/PLT COUNT & AUTO Routine 01/05/2019 6:08 Results for this DIFFERENTIAL AM [employer] procedure are in the results section. KETONE, BLOOD Routine 01/05/2019 6:08 Results for this AM [employer] procedure are in the results section. TRIGLYCERIDES Routine 01/05/2019 6:08 Results for this AM [employer] procedure are in the results section. COMPREHENSIVE Routine 01/05/2019 6:08 Results for this METABOLIC PANEL AM [employer] procedure are in the results section. PHOSPHORUS STAT 01/05/2019 6:08 Results for this AM [employer] procedure are in the results section. CBC W/PLT COUNT & AUTO Routine 01/05/2019 6:08 Results for this DIFFERENTIAL AM [employer] procedure are in the results section. MAGNESIUM Routine 01/05/2019 6:08 Results for this AM [employer] procedure are in the results section. POCT-GLUCOSE METER Routine 01/05/2019 5:13 Results for this AM [employer] procedure are in the results section. US ABDOMEN COMPLETE WARREN 01/05/2019 5:05 Results for this AM [employer] procedure are in the results section. POCT-GLUCOSE METER Routine 01/05/2019 4:27 Results for this AM [employer] procedure are in the results section. POCT-GLUCOSE METER Routine 01/05/2019 3:36 Results for this AM [employer] procedure are in the results section. POCT-GLUCOSE METER Routine 01/05/2019 3:02 Results for this AM [employer] procedure are in the results section. POCT-GLUCOSE METER Routine 01/05/2019 1:56 Results for this AM [employer] procedure are in the results section. POCT-GLUCOSE METER Routine 01/05/2019 1:19 Results for this AM [employer] procedure are in the results section. POCT-GLUCOSE METER Routine 01/05/2019 12:06 Results for this AM [employer] procedure are in the results section. BASIC METABOLIC PANEL Routine 01/04/2019 11:13 Results for this (7) PM [employer] procedure are in the results section. PHOSPHORUS Routine 01/04/2019 11:13 Results for this PM [employer] procedure are in the results section. MAGNESIUM Routine 01/04/2019 11:13 Results for this PM [employer] procedure are in the results section. POCT-GLUCOSE METER Routine 01/04/2019 11:10 Results for this PM [employer] procedure are in the results section. POCT-GLUCOSE METER Routine 01/04/2019 10:04 Results for this PM [employer] procedure are in the results section. POCT-GLUCOSE METER Routine 01/04/2019 9:00 Results for this PM [employer] procedure are in the results section. POCT-GLUCOSE METER Routine 01/04/2019 8:01 Results for this PM [employer] procedure are in the results section. POCT-GLUCOSE METER Routine 01/04/2019 5:01 Results for this PM [employer] procedure are in the results section. XR CHEST 1 VIEW STAT 01/04/2019 4:01 Results for this PORTABLE/BEDSIDE PM [employer] procedure are in the results section. POCT-GLUCOSE METER Routine 01/04/2019 3:59 Results for this PM [employer] procedure are in the results section. TRIGLYCERIDES Routine 01/04/2019 3:54 Results for this PM [employer] procedure are in the results section. BASIC METABOLIC PANEL Routine 01/04/2019 3:54 Results for this (7) PM [employer] procedure are in the results section. PHOSPHORUS Routine 01/04/2019 3:54 Results for this PM [employer] procedure are in the results section. MAGNESIUM Routine 01/04/2019 3:54 Results for this PM [employer] procedure are in the results section. POCT-GLUCOSE METER Routine 01/04/2019 2:23 Results for this PM [employer] procedure are in the results section. BASIC METABOLIC PANEL Routine 01/04/2019 2:13 Results for this (7) PM [employer] procedure are in the results section. POCT-GLUCOSE METER Routine 01/04/2019 1:29 Results for this PM [employer] procedure are in the results section. PHOSPHORUS Routine 01/04/2019 12:31 Results for this PM [employer] procedure are in the results section. MAGNESIUM Routine 01/04/2019 12:31 Results for this PM [employer] procedure are in the results section. POCT-GLUCOSE METER Routine 01/04/2019 11:55 Results for this AM [employer] procedure are in the results section. POCT-GLUCOSE METER Routine 01/04/2019 10:34 Results for this AM [employer] procedure are in the results section. BASIC METABOLIC PANEL Routine 01/04/2019 9:03 Results for this (7) AM [employer] procedure are in the results section. PHOSPHORUS Routine 01/04/2019 9:03 Results for this AM [employer] procedure are in the results section. MAGNESIUM Routine 01/04/2019 9:03 Results for this AM [employer] procedure are in the results section. POCT-GLUCOSE METER Routine 01/04/2019 8:02 Results for this AM [employer] procedure are in the results section. POCT-GLUCOSE METER Routine 01/04/2019 6:59 Results for this AM [employer] procedure are in the results section. POCT-GLUCOSE METER Routine 01/04/2019 6:01 Results for this AM [employer] procedure are in the results section. CBC W/PLT COUNT & AUTO Routine 01/04/2019 5:59 Results for this DIFFERENTIAL AM [employer] procedure are in the results section. TRIGLYCERIDES Routine 01/04/2019 5:59 Results for this AM [employer] procedure are in the results section. PHOSPHORUS STAT 01/04/2019 5:59 Results for this AM [employer] procedure are in the results section. MAGNESIUM STAT 01/04/2019 5:59 Results for this AM [employer] procedure are in the results section. COMPREHENSIVE STAT 01/04/2019 5:59 Results for this METABOLIC PANEL AM [employer] procedure are in the results section. CBC W/PLT COUNT & AUTO Routine 01/04/2019 5:59 Results for this DIFFERENTIAL AM [employer] procedure are in the results section. POCT-GLUCOSE METER Routine 01/04/2019 5:08 Results for this AM [employer] procedure are in the results section. POCT-GLUCOSE METER Routine 01/04/2019 4:23 Results for this AM [employer] procedure are in the results section. POCT-GLUCOSE METER Routine 01/04/2019 3:21 Results for this AM [employer] procedure are in the results section. POCT-GLUCOSE METER Routine 01/04/2019 1:54 Results for this AM [employer] procedure are in the results section. PHOSPHORUS Routine 01/04/2019 12:50 Results for this AM [employer] procedure are in the results section. MAGNESIUM Routine 01/04/2019 12:50 Results for this AM [employer] procedure are in the results section. BASIC METABOLIC PANEL Routine 01/04/2019 12:50 Results for this (7) AM [employer] procedure are in the results section. SCREEN, STAT 01/04/2019 12:31 Results for this URINE AM [employer] procedure are in the results section. POCT-GLUCOSE METER Routine 01/03/2019 11:58 Results for this PM [employer] procedure are in the results section. POCT-GLUCOSE METER Routine 01/03/2019 11:03 Results for this PM [employer] procedure are in the results section. POCT-GLUCOSE METER Routine 01/03/2019 10:11 Results for this PM [employer] procedure are in the results section. POCT-GLUCOSE METER Routine 01/03/2019 9:09 Results for this PM [employer] procedure are in the results section. POCT-GLUCOSE METER Routine 01/03/2019 8:06 Results for this PM [employer] procedure are in the results section. TRIGLYCERIDES Routine 01/03/2019 7:43 Results for this PM [employer] procedure are in the results section. PHOSPHORUS Routine 01/03/2019 7:43 Results for this PM [employer] procedure are in the results section. MAGNESIUM Routine 01/03/2019 7:43 Results for this PM [employer] procedure are in the results section. BASIC METABOLIC PANEL Routine 01/03/2019 7:43 Results for this (7) PM [employer] procedure are in the results section. POCT-GLUCOSE METER Routine 01/03/2019 7:00 Results for this PM [employer] procedure are in the results section. POCT-GLUCOSE METER Routine 01/03/2019 6:02 Results for this PM [employer] procedure are in the results section. POCT-GLUCOSE METER Routine 01/03/2019 4:59 Results for this PM [employer] procedure are in the results section. URINALYSIS W/ Routine 01/03/2019 4:18 Results for this MICROSCOPIC PM [employer] procedure are in the results section. PHOSPHORUS Routine 01/03/2019 4:01 Results for this PM [employer] procedure are in the results section. MAGNESIUM Routine 01/03/2019 4:01 Results for this PM [employer] procedure are in the results section. BASIC METABOLIC PANEL Routine 01/03/2019 4:01 Results for this (7) PM [employer] procedure are in the results section. POCT-GLUCOSE METER Routine 01/03/2019 4:00 Results for this PM [employer] procedure are in the results section. POCT-GLUCOSE METER Routine 01/03/2019 3:03 Results for this PM [employer] procedure are in the results section. POCT-GLUCOSE METER Routine 01/03/2019 1:53 Results for this PM [employer] procedure are in the results section. POCT-GLUCOSE METER Routine 01/03/2019 12:12 Results for this PM [employer] procedure are in the results section. BILIRUBIN, ADULT TOTAL STAT 01/03/2019 11:43 Results for this AM [employer] procedure are in the results section. ALT (SGPT) STAT 01/03/2019 11:43 Results for this AM [employer] procedure are in the results section. AST (SGOT) STAT 01/03/2019 11:43 Results for this AM [employer] procedure are in the results section. PHOSPHORUS Routine 01/03/2019 11:43 Results for this AM [employer] procedure are in the results section. MAGNESIUM Routine 01/03/2019 11:43 Results for this AM [employer] procedure are in the results section. BASIC METABOLIC PANEL Routine 01/03/2019 11:43 Results for this (7) AM [employer] procedure are in the results section. POTASSIUM Routine 01/03/2019 11:43 Results for this AM [employer] procedure are in the results section. POCT-GLUCOSE METER Routine 01/03/2019 11:05 Results for this AM [employer] procedure are in the results section. POCT-GLUCOSE METER Routine 01/03/2019 10:12 Results for this AM [employer] procedure are in the results section. BLOOD CULTURE Routine 01/03/2019 9:39 Results for this AM [employer] procedure are in the results section. BLOOD GAS, VENOUS STAT 01/03/2019 9:32 Results for this AM [employer] procedure are in the results section. POCT-GLUCOSE METER Routine 01/03/2019 8:56 Results for this AM [employer] procedure are in the results section. POCT-GLUCOSE METER Routine 01/03/2019 8:01 Results for this AM [employer] procedure are in the results section. PHOSPHORUS Routine 01/03/2019 7:51 Results for this AM [employer] procedure are in the results section. MAGNESIUM Routine 01/03/2019 7:51 Results for this AM [employer] procedure are in the results section. URINE CULTURE Routine 01/03/2019 7:47 Results for this AM [employer] procedure are in the results section. CBC W/PLT COUNT & AUTO STAT 01/03/2019 7:46 Results for this DIFFERENTIAL AM [employer] procedure are in the results section. LIPID PANEL STAT 01/03/2019 7:46 Results for this AM [employer] procedure are in the results section. LIPASE STAT 01/03/2019 7:46 Results for this AM [employer] procedure are in the results section. HEMOGLOBIN A1C Routine 01/03/2019 7:46 Results for this AM [employer] procedure are in the results section. TSH/FREE T4 IF Routine 01/03/2019 7:46 Results for this INDICATED AM [employer] procedure are in the results section. AMYLASE Routine 01/03/2019 7:46 Results for this AM [employer] procedure are in the results section. LACTIC ACID, VENOUS Routine 01/03/2019 7:46 Results for this AM [employer] procedure are in the results section. KETONE, BLOOD STAT 01/03/2019 7:46 Results for this AM [employer] procedure are in the results section. PHOSPHORUS STAT 01/03/2019 7:46 Results for this AM [employer] procedure are in the results section. MAGNESIUM STAT 01/03/2019 7:46 Results for this AM [employer] procedure are in the results section. BASIC METABOLIC PANEL STAT 01/03/2019 7:46 Results for this (7) AM [employer] procedure are in the results section. CBC W/PLT COUNT & AUTO STAT 01/03/2019 7:46 Results for this DIFFERENTIAL AM [employer] procedure are in the results section. BLOOD CULTURE Routine 01/03/2019 7:46 Results for this AM [employer] procedure are in the results section. POCT-GLUCOSE METER Routine 01/03/2019 7:01 Results for this AM [employer] procedure are in the results section. after 03/10/2018 Results RHYTHM STRIP - SCAN (01/19/2019 10:30 AM [employer]) Narrative Performed At POC-Glucose meter (01/07/2019 12:02 PM [employer])Only the most recent of69 resultswithin the time period is included. POC-Glucose Meter 245 (H)Comment: TESTED AT 70 - 110 mg/dL [place] [id number] [facility] [id number] Specimen Blood Performing Organization Address City/State/Zipcode Phone Number [address] [phone] CENTER CBC with platelet count + automated diff (01/07/2019 4:41 AM BUILDING SERVICES SUPERVISOR)Only the most recent of5 resultswithin the time period is included. WBC 7.0 3.5 - 10.5 K/L [facility] RBC 3.81 (L) 3.93 - 5.22 M/L [facility] Hemoglobin 10.8 (L) 11.2 - 15.7 GM/DL [facility] Hematocrit 33.9 (L) 34.1 - 44.9 % [facility] MCV 89.0 79.4 - 94.8 fL [facility] MCH 28.3 25.6 - 32.2 pg [facility] MCHC 31.9 (L) 32.2 - 35.5 GM/DL [facility] RDW 12.8 11.7 - 14.4 % [facility] Platelets 230 150 - 450 K/CU MM [facility] MPV 10.2 9.4 - 12.3 fL [facility] nRBC 0 0 - 0 /100 WBC [facility] % Neutros 59 % [facility] % Lymphs 28 % [facility] % Monos 5 % [facility] % Eos 2 % [facility] % Baso 1 % [facility] # Neutros 4.13 1.56 - 6.13 K/L [facility] # Lymphs 2.00 1.18 - 3.74 K/L [facility] # Monos 0.36 0.24 - 0.36 K/L [facility] # Eos 0.15 0.04 - 0.36 K/L [facility] # Baso 0.07 0.01 - 0.08 K/L [facility] Immature Granulocytes-Relative 5 (H) 0 - 1 % [facility] Specimen Blood - Arm, Right Performing Organization Address City/State/Zipcode Phone Number [facility] [address] [place] [address] CENTER Phosphorus (01/07/2019 4:41 AM BUILDING SERVICES SUPERVISOR)Only the most recent of17 resultswithin the time period is included. Phosphorus 3.9 2.3 - 4.7 mg/dL [facility] Specimen Blood - Arm, Right Performing Organization Address [facility] Phone Number [address] [address] CENTER Magnesium (01/07/2019 4:41 AM BUILDING SERVICES SUPERVISOR)Only the most recent of17 resultswithin the time period is included. Magnesium 1.8 1.6 - 2.6 mg/dL [facility] Specimen Blood - Arm, Right Performing Organization Address [facility] Phone Number [address] [phone] [place] Comprehensive metabolic panel (01/07/2019 4:41 AM BUILDING SERVICES SUPERVISOR)Only the most recent of4 resultswithin the time period is included. Protein, Total 6.3 6.0 - 8.3 gm/dL [facility] Albumin 3.3 (L) 3.5 - 5.0 g/dL [facility] Alkaline Phosphatase 90 40 - 150 U/L [facility] Total Bilirubin 0.9 0.2 - 1.2 mg/dL [facility] Sodium 135 (L) 136 - 145 meq/L [facility] Potassium 3.4 (L) 3.5 - 5.1 meq/L [facility] Chloride 100 98 - 107 meq/L [facility] CO2 25 22 - 29 meq/L [facility] BUN 5 (L) 7 - 21 mg/dL [facility] Creatinine 0.59 0.57 - 1.25 mg/dL [facility] Glucose 184 (H) 70 - 105 mg/dL [facility] Calcium 9.0 8.4 - 10.2 mg/dL [facility] AST 40 (H) 5 - 34 U/L [facility] ALT 27 6 - 55 U/L [facility] EGFR Comment: INSUFFICIENT mL/min/1.73 sq m [facility] CLINICAL DATA TO [facility] CALCULATE ESTIMATED GFR. Specimen Blood - Arm, Right Performing Organization Address City/State/Zipcode Phone Number [facility] [address] [place] [address] CENTER MR abdomen without IV contrast MRCP (01/06/2019 3:09 AM BUILDING SERVICES SUPERVISOR) Narrative Performed At FINAL REPORT [facility] MRCP, 01/06/2019 Clinical History: Pancreatitis Technique: Multiplanar and multisequence MR images of the biliary system are obtained, with dedicated MRCP protocol and images. No intravenous contrast is administered. In addition, 3 dimensional reformatted images of the biliary system are obtained. Comparison: None. Correlation is made with a right upper quadrant ultrasound dated 01/05/2019 Discussion: This examination is not dedicated to evaluating masses or parenchymal abnormalities of the abdominal organs. There are several gallstones within the gallbladder lumen. There is no evidence of gallbladder wall thickening. A small amount of pericholecystic fluid is present, however, this appears to track from the retroperitoneum and adjacent right upper quadrant. There is no biliary ductal dilatation. The common bile duct measures approximately 2 mm. No choledocholithiasis is present. The liver is enlarged with the right hepatic margin measuring 26.8 cm in cradle caudal dimension at the midclavicular line. In and out of phase imaging of the liver demonstrates diffuse steatosis. There is no focal hepatic mass lesion identified on this limited evaluation. There is prominence of the pancreatic head and uncinate process with increased T2 signal suggesting edema. There is adjacent retroperitoneal fluid and fat stranding which tracks into the dependent right retroperitoneum, consistent with an acute peripancreatic collection. There is no organized fluid collection to suggest pseudocyst or abscess. There is no pancreatic ductal dilatation. The kidneys and visualized bowel are unremarkable. There are small bilateral pleural effusions and adjacent atelectasis. The visualized skeleton is unremarkable. Impression: Findings consistent with acute pancreatitis. There is no organized peripancreatic fluid collection. Cholelithiasis. No choledocholithiasis, biliary ductal or pancreatic ductal dilatation. Hepatomegaly with associated hepatic steatosis. Small bilateral pleural effusions and adjacent atelectasis. Signed: Karlene Sawant MD Report Verified Date/Time:01/06/2019 03:32:56 Reading Location: [address] Reading Room Procedure Note Interface, External Ris In - 01/06/2019 3:35 AM BUILDING SERVICES SUPERVISOR FINAL REPORT MRCP, 01/06/2019 Clinical History: Pancreatitis Technique: Multiplanar and multisequence MR images of the biliary system are obtained, with dedicated MRCP protocol and images. No intravenous contrast is administered. In addition, 3 dimensional reformatted images of the biliary system are obtained. Comparison: None. Correlation is made with a right upper quadrant ultrasound dated 01/05/2019 Discussion: This examination is not dedicated to evaluating masses or parenchymal abnormalities of the abdominal organs. There are several gallstones within the gallbladder lumen. There is no evidence of gallbladder wall thickening. A small amount of pericholecystic fluid is present, however, this appears to track from the retroperitoneum and adjacent right upper quadrant. There is no biliary ductal dilatation. The common bile duct measures approximately 2 mm. No choledocholithiasis is present. The liver is enlarged with the right hepatic margin measuring 26.8 cm in cradle caudal dimension at the midclavicular line. In and out of phase imaging of the liver demonstrates diffuse steatosis. There is no focal hepatic mass lesion identified on this limited evaluation. There is prominence of the pancreatic head and uncinate process with increased T2 signal suggesting edema. There is adjacent retroperitoneal fluid and fat stranding which tracks into the dependent right retroperitoneum, consistent with an acute peripancreatic collection. There is no organized fluid collection to suggest pseudocyst or abscess. There is no pancreatic ductal dilatation. The kidneys and visualized bowel are unremarkable. There are small bilateral pleural effusions and adjacent atelectasis. The visualized skeleton is unremarkable. Impression: Findings consistent with acute pancreatitis. There is no organized peripancreatic fluid collection. Cholelithiasis. No choledocholithiasis, biliary ductal or pancreatic ductal dilatation. Hepatomegaly with associated hepatic steatosis. Small bilateral pleural effusions and adjacent atelectasis. Signed: Karlene Sawant MD Report Verified Date/Time: 01/06/2019 03:32:56 Reading Location: [address] Reading Room Performing Organization Address City/[facility]/Zipcode Phone Number [facility] Basic Metabolic Panel (01/06/2019 12:10 AM BUILDING SERVICES SUPERVISOR)Only the most recent of12 resultswithin the time period is included. Sodium 136 136 - 145 meq/L [facility] Potassium 3.8Comment: Specimen slightly 3.5 - 5.1 meq/L [facility] Chloride 101 98 - 107 meq/L [facility] CO2 24 22 - 29 meq/L [facility] BUN 2 (L) 7 - 21 mg/dL [facility] Creatinine 0.60Comment: Specimen slightly 0.57 - 1.25 mg/dL [facility] Glucose 158 (H) 70 - 105 mg/dL [facility] Calcium 8.8 8.4 - 10.2 mg/dL [facility] EGFR Comment: INSUFFICIENT CLINICAL mL/min/1.73 sq m [facility] DATA TO CALCULATE ESTIMATED [facility]ENTER GFR. Specimen Blood Performing Organization Address [facility] Phone Number [facility] MEDICAL [address] [place] [address] [phone] CENTER Triglycerides (01/05/2019 6:08 AM BUILDING SERVICES SUPERVISOR)Only the most recent of4 resultswithin the time period is included. Triglycerides 290Comment: Specimen slightly mg/dL [facility] Specimen Blood Narrative Performed At TRIGLYCERIDE REFERENCE RANGE [facility] Low Risk<150 Borderline Risk 150-199 High Omso547-198 Very High Risk >=500 Performing Organization Address [facility] Phone Number [facility] [address] [place] [address] [place] Ketone, blood (01/05/2019 6:08 AM BUILDING SERVICES SUPERVISOR)Only the most recent of2 resultswithin the time period is included. Ketones, Blood 0.6 (H) <0.4 mmol/L [facility] Specimen Blood Performing Organization Address City/State/Zipcode Phone Number [facility] [address] [place] [address] [place] US abdomen complete (01/05/2019 5:05 AM BUILDING SERVICES SUPERVISOR) Narrative Performed At Addendum Begins [facility] REPORT STATUS:A Addendum: The MICU resident brought the report to my attention at 11:45 AM January 05, 2019. The addendum does not match the patient's clinical history or original report. The addendum reported is inappropriately matched. The file room and the PACS system will be notified. The original report is appropriately matched to the accession number and clinical history. 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 Right lower quadrant transplant kidney: The kidney measures 13.2 cm x 7.5 cm x 6.8 cm.The cortical echogenicity is normal.The cortex measures 2.4 cm.There is no evidence of a focal mass.There is no evidence of hydronephrosis. There is no evidence of a shadowing stone.There is no evidence of a cyst.There is no evidence of a perinephric fluid collection.Flow was visualized to the kidney. The resistive indices are 0.65, 0.58 and 0.62 in the upper middle and lower poles respectively.The peak systolic velocities in the renal artery and vein were measured and are unremarkable as compared to the iliac vessels.Flow was measured at the anastomosis as well.There is no evidence of tardus parvus in the submitted arterial waveforms Survey images of the bladder demonstrate a Mondragon catheter. Impression: Right lower quadrant transplant kidney. There is no evidence of hydronephrosis. The right lower quadrant transplant kidney is normal in length and echogenicity. The visualized arterial waveforms were unremarkable. Signed: Kathi Simental MD Report Verified Date/Time:01/05/2019 09:25:40 Reading Location: [address] Ultrasound Reading Room Addendum Ends FINAL REPORT Abdominal Ultrasound Clinical Diagnosis: Pancreatitis gallstones and cholecystitis Comparison: No comparison Technique: Multiple transaxial and longitudinal images were obtained through the abdomen with real time ultrasonography.Five MHz transducer was utilized.99 images were submitted for interpretation. Report: Liver: The liver measures 24.3 cm in the right midaxillary line. There are no focal masses.The echogenicity is increased. Spleen: The spleen measures 14.7 cm in the left mid axillary line. Gallbladder: The transverse diameter is 2.9 cm.The wall measures two mm.There are multiple shadowing stones visualized. Biliary tree: There is no evidence of intra or extra hepatic biliary ductal dilatation.The common bile duct measures five mm. Portal vein: The portal vein measures 13 mm. Pancreas:The pancreatic tail is not well seen secondary to overlying bowel gas. Ascites: Negative Pleural Effusion: Negative Right kidney: The right kidney measures 13.6 cm in length without evidence of hydronephrosis. Left kidney: Theleft kidney measures 13.3 cm in length without evidence of hydronephrosis. IVC/Aorta: Partially seen segments demonstrate no abnormality. Maximum transverse dimension aorta is 2.2 cm proximally. Overlying bowel gas obscures distal visualization Impression: Hepatosplenomegaly. Fatty infiltration of the liver. Cholelithiasis. Signed: Kathi Simental MD Report Verified Date/Time:01/05/2019 09:04:41 Reading Location: [address] Ultrasound Reading Room Procedure Note Interface, External Ris In - 01/05/2019 11:47 AM BUILDING SERVICES SUPERVISOR Addendum Begins REPORT STATUS:A Addendum: The MICU resident brought the report to my attention at 11:45 AM January 05, 2019. The addendum does not match the patient's clinical history or original report. The addendum reported is inappropriately matched. The file room and the PACS system will be notified. The original report is appropriately matched to the accession number and clinical history. 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 69 images were submitted for interpretation, using a five MHz transducer. Doppler images were also submitted for interpretation. Right lower quadrant transplant kidney: The kidney measures 13.2 cm x 7.5 cm x 6.8 cm. The cortical echogenicity is normal. The cortex measures 2.4 cm. There is no evidence of a focal mass. There is no evidence of hydronephrosis. There is no evidence of a shadowing stone. There is no evidence of a cyst. There is no evidence of a perinephric fluid collection. Flow was visualized to the kidney. The resistive indices are 0.65, 0.58 and 0.62 in the upper middle and lower poles respectively. The peak systolic velocities in the renal artery and vein were measured and are unremarkable as compared to the iliac vessels. Flow was measured at the anastomosis as well. There is no evidence of tardus parvus in the submitted arterial waveforms Survey images of the bladder demonstrate a Mondragon catheter. Impression: Right lower quadrant transplant kidney. There is no evidence of hydronephrosis. The right lower quadrant transplant kidney is normal in length and echogenicity. The visualized arterial waveforms were unremarkable. Signed: Kathi Simental MD Report Verified Date/Time: 01/05/2019 09:25:40 Reading Location: [address] Ultrasound Reading Room Addendum Ends FINAL REPORT Abdominal Ultrasound Clinical Diagnosis: Pancreatitis gallstones and cholecystitis Comparison: No comparison Technique: Multiple transaxial and longitudinal images were obtained through the abdomen with real time ultrasonography. Five MHz transducer was utilized. 99 images were submitted for interpretation. Report: Liver: The liver measures 24.3 cm in the right midaxillary line. There are no focal masses. The echogenicity is increased. Spleen: The spleen measures 14.7 cm in the left mid axillary line. Gallbladder: The transverse diameter is 2.9 cm. The wall measures two mm. There are multiple shadowing stones visualized. Biliary tree: There is no evidence of intra or extra hepatic biliary ductal dilatation. The common bile duct measures five mm. Portal vein: The portal vein measures 13 mm. Pancreas: The pancreatic tail is not well seen secondary to overlying bowel gas. Ascites: Negative Pleural Effusion: Negative Right kidney: The right kidney measures 13.6 cm in length without evidence of hydronephrosis. Left kidney: The left kidney measures 13.3 cm in length without evidence of hydronephrosis. IVC/Aorta: Partially seen segments demonstrate no abnormality. Maximum transverse dimension aorta is 2.2 cm proximally. Overlying bowel gas obscures distal visualization Impression: Hepatosplenomegaly. Fatty infiltration of the liver. Cholelithiasis. Signed: Kathi Simental MD Report Verified Date/Time: 01/05/2019 09:04:41 Reading Location: [facility] [id number] Ultrasound Reading Room Performing Organization Address City/State/Zipcode Phone Number [facility] XR chest 1 view portable / bedside (01/04/2019 4:01 PM BUILDING SERVICES SUPERVISOR) Narrative Performed At FINAL REPORT [facility] INDICATION: pancreatitis, ? pulm edema, pleural effusions COMPARISON: None TECHNIQUE: Chest radiograph, single view, portable technique. FINDINGS / IMPRESSION: Pulmonary veins are crowded which probably is related to low lung volumes. There is left base subsegmental atelectasis. No discrete consolidation and no pneumothorax demonstrated. Heart shadow appears normal in size. Osseous structures are unremarkable. Signed: Gunjan Hoskins MD Report Verified Date/Time:01/04/2019 17:51:37 Reading Location: [facility] [id number] Consult Reading Room Procedure Note Interface, External Ris In - 01/04/2019 5:53 PM BUILDING SERVICES SUPERVISOR FINAL REPORT INDICATION: pancreatitis, ? pulm edema, pleural effusions COMPARISON: None TECHNIQUE: Chest radiograph, single view, portable technique. FINDINGS / IMPRESSION: Pulmonary veins are crowded which probably is related to low lung volumes. There is left base subsegmental atelectasis. No discrete consolidation and no pneumothorax demonstrated. Heart shadow appears normal in size. Osseous structures are unremarkable. Signed: Gunjan Hoskins MD Report Verified Date/Time: 01/04/2019 17:51:37 Reading Location: [facility] B1 [id number] Consult Reading Room Performing Organization Address City/State/Zipcode Phone Number [facility] Screen, urine (01/04/2019 12:31 AM BUILDING SERVICES SUPERVISOR) Preg Test, Ur Negative [facility] Specimen Urine Performing Organization Address City/[facility]/Zipcode Phone Number [address] [address] CENTER Urinalysis w/ Microscopic (01/03/2019 4:18 PM BUILDING SERVICES SUPERVISOR) Color, UA Yellow [facility] Clarity, UA Clear [facility] Specific [place], UA 1.014 1.001 - 1.035 [facility] pH, UA 5.5 5.0 - 8.0 [facility] Protein, UA 100 mg/dL (A) Negative [facility] Glucose, UA >1000 mg/dL (A) Negative [facility] Ketones, UA >150 mg/dL (A) Negative [facility] Bilirubin, UA Negative Negative [facility] Blood, UA Small (A) Negative [facility] Nitrite, UA Negative Negative [facility] Leukocytes, UA Negative Negative [facility] Urobilinogen, UA 2.0 (H) 0.2 - 1.0 mg/dL [facility] RBC, UA <1 /HPF [facility] WBC, UA 1 /HPF [facility] Bacteria, UA Rare [facility] Mucus Occasional [facility] Squam Epithel, UA 1 /HPF [facility] Specimen Source Urine, Clean Catch [facility] Specimen Urine - Urine, Clean Catch Performing Organization Address [facility] Phone Number [address] [address] CENTER ALT (SGPT) (01/03/2019 11:43 AM BUILDING SERVICES SUPERVISOR) ALT 20Comment: Specimen slightly 6 - 55 U/L [facility] hemolyzed [place] Specimen Blood Narrative Performed At Specimen slightly lipemic [facility] Performing Organization Address [facility] Phone Number [address] [address] CENTER AST (SGOT) (01/03/2019 11:43 AM BUILDING SERVICES SUPERVISOR) AST 18Comment: Specimen slightly 5 - 34 U/L [facility] hemolyzed [place] Specimen Blood Narrative Performed At Specimen slightly lipemic [facility] Performing Organization Address [facility] Phone Number [address] [address] CENTER Potassium (01/03/2019 11:43 AM BUILDING SERVICES SUPERVISOR) Potassium 4.1Comment: Specimen slightly 3.5 - 5.1 meq/L [facility] hemolyzed [facility] Specimen Blood Performing Organization Address [facility] Phone Number [address] [address] [phone] CENTER Bilirubin, adult total (01/03/2019 11:43 AM BUILDING SERVICES SUPERVISOR) Total Bilirubin 1.6 (H)Comment: Specimen 0.2 - 1.2 mg/dL [facility] slightly hemolyzed [facility] Specimen Blood Performing Organization Address City/[facility] Phone Number [address] [place] [address] [place] Blood culture #2 (01/03/2019 9:39 AM BUILDING SERVICES SUPERVISOR)Only the most recent of2 resultswithin the time period is included. Result No growth in 5 days [facility] Specimen Blood - Line, Venous Performing Organization Address [facility] Phone Number [address] [address] [phone] [place] Blood gas, venous (01/03/2019 9:32 AM BUILDING SERVICES SUPERVISOR) pH, Gus 7.22 (L) 7.32 - 7.42 [facility] pCO2, Gus 28 (L) 41 - 51 mmHg [facility] pO2, Gus 41 (H) 25 - 40 mmHg [facility] O2 Sat, Gus 68.2 40.0 - 70.0 % [facility] HCO3, Gus 11 (L) 21 - 29 mmol/L [facility] Base Excess, Gus -14.9 (L) -2.0 - 3.0 mmol/L [facility] Patient Temperature 37.0 C [facility] Specimen Blood - Line, Venous Performing Organization Address [facility] Phone Number [address] [address] [place] Urine culture (01/03/2019 7:47 AM BUILDING SERVICES SUPERVISOR) Result See comment [facility] Specimen Urine - Urine, Clean Catch Narrative Performed At <10,000 col/mL yeast [facility] 10-19,000 col/mL skin maurice Performing Organization Address City/[facility] Phone Number [address] [address] [phone] [place] TSH/Free T4 If Indicated (01/03/2019 7:46 AM BUILDING SERVICES SUPERVISOR) TSH 0.86 0.35 - 4.94 uIU/mL [facility] Specimen Blood Performing Organization Address City/[facility]/Zipcode Phone Number [address] [address] [phone] [place] Lactic acid, venous, whole blood (01/03/2019 7:46 AM BUILDING SERVICES SUPERVISOR) Lactate, Venous 1.1Comment: Specimen 0.5 - 2.2 mmol/L [facility] moderately hemolyzed [facility] Specimen Blood Narrative Performed At Specimen slightly lipemic [facility] Performing Organization Address City/[facility] Phone Number [address] [address] CENTER Lipase (01/03/2019 7:46 AM BUILDING SERVICES SUPERVISOR) Lipase 154 (H) 8 - 78 U/L [facility] Specimen Blood Performing Organization Address City/[facility] [facility] Phone Number [address] [address] [place] Hemoglobin A1c (01/03/2019 7:46 AM BUILDING SERVICES SUPERVISOR) Hemoglobin A1C 12.8 (H) 4.3 - 6.1 % [facility] Specimen Blood Performing Organization Address City/[facility] Phone Number [address] [address] C[place] Amylase (01/03/2019 7:46 AM BUILDING SERVICES SUPERVISOR) Amylase 49Comment: Specimen slightly 25 - 125 U/L [facility] hemolyzed [facility] Specimen Blood Performing Organization Address City/[facility] Phone Number [address] [address] [place] Lipid panel (01/03/2019 7:46 AM BUILDING SERVICES SUPERVISOR) Triglycerides 1,710Comment: Specimen slightly mg/dL [facility] Cholesterol 484Comment: Specimen slightly mg/dL [facility] HDL 22 mg/dL [facility] Specimen Blood Narrative Performed At Calculated LDL not valid if triglyceride >400 [facility] mg/dL Triglyceride Reference Range: Low Risk <150 [id number] High Risk 200-499 Very High Risk>=500 Cholesterol Reference Range: Low Risk <200 [id number] High Risk>240 HDL Cholesterol Reference Range: Low Risk >=60 High Risk <40 LDL Cholesterol Reference Range: Optimal<100 Near Subtjpl125-986 Ikqlzeqzfs081-653 [id number] Very High >=190 Specimen markedly lipemic Performing Organization Address City/State/Zipcode Phone Number [facility] [address] [place] [address] [phone] CENTER after 03/10/2018 Insurance Payer Benefit Plan / Group Subscriber ID Type Phone Address MEDICAID [place] xxxxxxxxx Medicaid Advance Directives For more information, please contact:[address] [phone] Code Status Date Activated Date Inactivated Comments Full Code 01/03/2019 7:12 AM This code status was determined by: Patient
--- OUTSIDE RECORDS SUMMARY | 2019-03-11 23:51 | XMS REPORT ---
:1995 [facility] Address [address] [place] [address] Care Team Providers Name Role Phone DANIELYOBANYBIJAN Unavailable Unavailable Problems This patient has no known problems. Allergies, Adverse Reactions, Alerts This patient has no known allergies or adverse reactions. Medications This patient has no known medications. Results Test Description Test Time Test Comments Text Results Atomic Results Result Comments BLOOD CULTURE 2019-01-08 11:01:00 Test Item Value Reference Range Comments CULTURE (BEAKER) (test remu=7874) No growth in 5 days BLOOD [id number] 11:01:00 Test Item Value Reference Range Comments CULTURE (BEAKER) (test ttvi=9260) No growth in 5 days POCT-GLUCOSE [id number] 12:44:00 Test Item Value Reference Range Comments POC-GLUCOSE METER (BEAKER) 245 mg/dL 70-110 TESTED AT [facility] [address] [place] [address] (test xayj=2127) [facility] [address] CBC W/PLT COUNT & AUTO [id number] 10:26:00 Test Item Value Reference Range Comments WHITE BLOOD CELL COUNT (BEAKER) (test koaa=030) 7.0 K/ L 3.5-10.5 RED BLOOD CELL COUNT (BEAKER) (test awac=822) 3.81 M/ L 3.93-5.22 HEMOGLOBIN (BEAKER) (test bfna=988) 10.8 GM/DL 11.2-15.7 HEMATOCRIT (BEAKER) (test opjb=790) 33.9 % 34.1-44.9 MEAN CORPUSCULAR VOLUME (BEAKER) (test uplt=562) 89.0 fL 79.4-94.8 MEAN CORPUSCULAR HEMOGLOBIN (BEAKER) (test 28.3 pg 25.6-32.2 kvdo=206) MEAN CORPUSCULAR HEMOGLOBIN CONC (BEAKER) (test 31.9 GM/DL 32.2-35.5 fuqj=950) RED CELL DISTRIBUTION WIDTH (BEAKER) (test 12.8 % 11.7-14.4 jfkz=495) PLATELET COUNT (BEAKER) (test ubna=192) 230 K/CU MM 150-450 MEAN PLATELET VOLUME (BEAKER) (test cjoa=974) 10.2 fL 9.4-12.3 NUCLEATED RED BLOOD CELLS (BEAKER) (test 0 /100 WBC 0-0 wwtw=856) NEUTROPHILS RELATIVE PERCENT (BEAKER) (test 59 % wozy=305) LYMPHOCYTES RELATIVE PERCENT (BEAKER) (test 28 % umrp=698) MONOCYTES RELATIVE PERCENT (BEAKER) (test 5 % heom=409) EOSINOPHILS RELATIVE PERCENT (BEAKER) (test 2 % gmip=208) BASOPHILS RELATIVE PERCENT (BEAKER) (test 1 % ofga=263) NEUTROPHILS ABSOLUTE COUNT (BEAKER) (test 4.13 K/ L 1.56-6.13 nkkw=493) LYMPHOCYTES ABSOLUTE COUNT (BEAKER) (test 2.00 K/ L 1.18-3.74 trqg=379) MONOCYTES ABSOLUTE COUNT (BEAKER) (test 0.36 K/ L 0.24-0.36 awpu=158) EOSINOPHILS ABSOLUTE COUNT (BEAKER) (test 0.15 K/ L 0.04-0.36 hhsy=032) BASOPHILS ABSOLUTE COUNT (BEAKER) (test 0.07 K/ L 0.01-0.08 mcwp=830) IMMATURE GRANULOCYTES-RELATIVE PERCENT (BEAKER) 5 % 0-1 (test woff=9340) POCT-GLUCOSE [id number] 09:16:00 Test Item Value Reference Range Comments POC-GLUCOSE METER (BEAKER) 205 mg/dL 70-110 TESTED AT [facility] [address] [facility] (test ezcf=2261) [facility] [address] COMPREHENSIVE METABOLIC [id number] 07:42:00 Test Item Value Reference Range Comments TOTAL PROTEIN (BEAKER) 6.3 gm/dL 6.0-8.3 (test otow=232) ALBUMIN (BEAKER) (test 3.3 g/dL 3.5-5.0 puqa=8597) ALKALINE PHOSPHATASE 90 U/L 40-150 (BEAKER) (test gqod=602) BILIRUBIN TOTAL (BEAKER) 0.9 mg/dL 0.2-1.2 (test ojap=680) SODIUM (BEAKER) (test 135 meq/L 136-145 juhd=826) POTASSIUM (BEAKER) (test 3.4 meq/L 3.5-5.1 ohon=739) CHLORIDE (BEAKER) (test 100 meq/L 98-107 gelf=736) CO2 (BEAKER) (test 25 meq/L 22-29 cnds=318) BLOOD UREA NITROGEN 5 mg/dL 7-21 (BEAKER) (test pypd=110) CREATININE (BEAKER) (test 0.59 mg/dL 0.57-1.25 yetq=948) GLUCOSE RANDOM (BEAKER) 184 mg/dL 70-105 (test iqyp=366) CALCIUM (BEAKER) (test 9.0 mg/dL 8.4-10.2 prla=949) AST (SGOT) (BEAKER) (test 40 U/L 5-34 rlwx=955) ALT (SGPT) (BEAKER) (test 27 U/L 6-55 zkvf=961) EGFR (BEAKER) (test mL/min/1.73 sq m INSUFFICIENT CLINICAL DATA tiwf=1426) TO CALCULATE ESTIMATED GFR. [id number] 07:41:00 Test Item Value Reference Range Comments PHOSPHORUS (BEAKER) (test ozqk=709) 3.9 mg/dL 2.3-4.7 [id number] 07:41:00 Test Item Value Reference Range Comments MAGNESIUM (BEAKER) (test jjjp=837) 1.8 mg/dL 1.6-2.6 POCT-GLUCOSE [id number] 22:51:00 Test Item Value Reference Range Comments POC-GLUCOSE METER (BEAKER) 195 mg/dL 70-110 TESTED AT [address] (test camh=6226) [facility] [address] POCT-GLUCOSE [id number] 18:54:00 Test Item Value Reference Range Comments POC-GLUCOSE METER (BEAKER) 200 mg/dL 70-110 TESTED AT [address] (test dpjl=1250) [facility] [address] POCT-GLUCOSE [id number] 13:14:00 Test Item Value Reference Range Comments POC-GLUCOSE METER (BEAKER) 186 mg/dL 70-110 TESTED AT [address] (test ispm=8601) [place] [address] POCT-GLUCOSE [id number] 11:05:00 Test Item Value Reference Range Comments POC-GLUCOSE METER (BEAKER) 186 mg/dL 70-110 TESTED AT [address] (test kobg=9804) [facility] [address] POCT-GLUCOSE [id number] 11:05:00 Test Item Value Reference Range Comments POC-GLUCOSE METER (BEAKER) 165 mg/dL 70-110 TESTED AT [address] (test qmvm=0697) [facility] [address] POCT-GLUCOSE [id number] 09:06:00 Test Item Value Reference Range Comments POC-GLUCOSE METER (BEAKER) 153 mg/dL 70-110 TESTED AT [address] (test bxiy=7818) [facility] [address] POCT-GLUCOSE [id number] 08:03:00 Test Item Value Reference Range Comments POC-GLUCOSE METER (BEAKER) 170 mg/dL 70-110 TESTED AT [address] (test akcn=3262) [facility] [address] [id number] 05:18:00 Test Item Value Reference Range Comments PHOSPHORUS (BEAKER) (test yerc=993) 2.9 mg/dL 2.3-4.7 [id number] 05:18:00 Test Item Value Reference Range Comments MAGNESIUM (BEAKER) (test zgyo=698) 2.0 mg/dL 1.6-2.6 COMPREHENSIVE METABOLIC [id number] 05:18:00 Test Item Value Reference Range Comments TOTAL PROTEIN (BEAKER) 6.5 gm/dL 6.0-8.3 (test iizz=053) ALBUMIN (BEAKER) (test 3.2 g/dL 3.5-5.0 bvux=2088) ALKALINE PHOSPHATASE 87 U/L 40-150 (BEAKER) (test oqpj=762) BILIRUBIN TOTAL (BEAKER) 1.1 mg/dL 0.2-1.2 (test pqsw=036) SODIUM (BEAKER) (test 137 meq/L 136-145 zcmg=638) POTASSIUM (BEAKER) (test 3.5 meq/L 3.5-5.1 pjgs=685) CHLORIDE (BEAKER) (test 102 meq/L 98-107 furi=348) CO2 (BEAKER) (test 24 meq/L 22-29 alvj=433) BLOOD UREA NITROGEN 3 mg/dL 7-21 (BEAKER) (test isyw=207) CREATININE (BEAKER) (test 0.58 mg/dL 0.57-1.25 lqli=151) GLUCOSE RANDOM (BEAKER) 168 mg/dL 70-105 (test hmof=272) CALCIUM (BEAKER) (test 9.0 mg/dL 8.4-10.2 hcuf=235) AST (SGOT) (BEAKER) (test 35 U/L 5-34 jgoo=810) ALT (SGPT) (BEAKER) (test 27 U/L 6-55 mgni=629) EGFR (BEAKER) (test mL/min/1.73 sq m INSUFFICIENT CLINICAL DATA xkkv=6367) TO CALCULATE ESTIMATED GFR. POCT-GLUCOSE [id number] 05:12:00 Test Item Value Reference Range Comments POC-GLUCOSE METER (BEAKER) 192 mg/dL 70-110 TESTED AT [facility] [address] [facility] (test oucd=2314) [facility] [address] CBC W/PLT COUNT & AUTO [id number] 04:57:00 Test Item Value Reference Range Comments WHITE BLOOD CELL COUNT (BEAKER) (test rosi=617) 7.5 K/ L 3.5-10.5 RED BLOOD CELL COUNT (BEAKER) (test ioic=506) 3.73 M/ L 3.93-5.22 HEMOGLOBIN (BEAKER) (test debe=496) 10.5 GM/DL 11.2-15.7 HEMATOCRIT (BEAKER) (test jhva=971) 33.0 % 34.1-44.9 MEAN CORPUSCULAR VOLUME (BEAKER) (test yfti=811) 88.5 fL 79.4-94.8 MEAN CORPUSCULAR HEMOGLOBIN (BEAKER) (test 28.2 pg 25.6-32.2 ncio=451) MEAN CORPUSCULAR HEMOGLOBIN CONC (BEAKER) (test 31.8 GM/DL 32.2-35.5 zwlh=697) RED CELL DISTRIBUTION WIDTH (BEAKER) (test 13.2 % 11.7-14.4 rgjs=763) PLATELET COUNT (BEAKER) (test eutm=798) 219 K/CU MM 150-450 MEAN PLATELET VOLUME (BEAKER) (test lxex=753) 10.7 fL 9.4-12.3 NUCLEATED RED BLOOD CELLS (BEAKER) (test 0 /100 WBC 0-0 lhah=940) NEUTROPHILS RELATIVE PERCENT (BEAKER) (test 72 % kdav=095) LYMPHOCYTES RELATIVE PERCENT (BEAKER) (test 19 % zjdd=869) MONOCYTES RELATIVE PERCENT (BEAKER) (test 5 % hecz=702) EOSINOPHILS RELATIVE PERCENT (BEAKER) (test 1 % ogcv=073) BASOPHILS RELATIVE PERCENT (BEAKER) (test 0 % oayw=319) NEUTROPHILS ABSOLUTE COUNT (BEAKER) (test 5.40 K/ L 1.56-6.13 dmag=413) LYMPHOCYTES ABSOLUTE COUNT (BEAKER) (test 1.43 K/ L 1.18-3.74 iijb=040) MONOCYTES ABSOLUTE COUNT (BEAKER) (test 0.40 K/ L 0.24-0.36 zcec=036) EOSINOPHILS ABSOLUTE COUNT (BEAKER) (test 0.10 K/ L 0.04-0.36 iatv=974) BASOPHILS ABSOLUTE COUNT (BEAKER) (test 0.03 K/ L 0.01-0.08 dibf=411) IMMATURE GRANULOCYTES-RELATIVE PERCENT (BEAKER) 2 % 0-1 (test nhnz=5613) POCT-GLUCOSE [id number] 04:29:00 Test Item Value Reference Range Comments POC-GLUCOSE METER (BEAKER) 198 mg/dL 70-110 TESTED AT [facility] [address] [facility] (test gxay=4823) [facility] [address] MR, ABDOMEN, [id number] 03:32:00FINAL REPORT MRCP, 01/06/2019 Clinical History: Pancreatitis Technique: Multiplanar and multisequence MR images of the biliary system are obtained, with dedicated MRCP protocol andimages. No intravenous contrast is administered. In addition, [...] of phase imaging of the liver demonstrates diffusesteatosis. There is no focal hepatic mass lesion [...] Hepatomegaly with associated hepatic steatosis. Small bilateral pleuraleffusions and adjacent atelectasis. Signed: Karlene Sawant MDReport Verified Date/Time: 01/06/2019 03:32:56 Reading Location: [address] Reading Room POCT-GLUCOSE [id number] 03:22:00 Test Item Value Reference Range Comments POC-GLUCOSE METER (BEAKER) 197 mg/dL 70-110 TESTED AT [address] (test cbij=6602) [facility] [address] POCT-GLUCOSE [id number] 00:58:00 Test Item Value Reference Range Comments POC-GLUCOSE METER (BEAKER) 207 mg/dL 70-110 TESTED AT [address] (test qvgu=6956) [facility] [address] [id number] 00:42:00 Test Item Value Reference Range Comments MAGNESIUM (BEAKER) (test 2.4 mg/dL 1.6-2.6 Specimen slightly hemolyzed jfsr=466) [id number] 00:42:00 Test Item Value Reference Range Comments PHOSPHORUS (BEAKER) (test 3.3 mg/dL 2.3-4.7 Specimen slightly hemolyzed dhje=141) BASIC METABOLIC [id number] 00:42:00 Test Item Value Reference Range Comments SODIUM (BEAKER) (test 136 meq/L 136-145 znty=261) POTASSIUM (BEAKER) (test 3.8 meq/L 3.5-5.1 Specimen slightly grvu=745) hemolyzed CHLORIDE (BEAKER) (test 101 meq/L 98-107 nnwy=986) CO2 (BEAKER) (test 24 meq/L 22-29 gwjz=762) BLOOD UREA NITROGEN 2 mg/dL 7-21 (BEAKER) (test swrk=563) CREATININE (BEAKER) (test 0.60 mg/dL 0.57-1.25 Specimen slightly eczs=748) hemolyzed GLUCOSE RANDOM (BEAKER) 158 mg/dL 70-105 (test svfy=127) CALCIUM (BEAKER) (test 8.8 mg/dL 8.4-10.2 ujmw=672) EGFR (BEAKER) (test mL/min/1.73 sq m INSUFFICIENT CLINICAL DATA wlek=6760) TO CALCULATE ESTIMATED GFR. POCT-GLUCOSE [id number] 23:09:00 Test Item Value Reference Range Comments POC-GLUCOSE METER (BEAKER) 146 mg/dL 70-110 TESTED AT [address] (test lckt=5789) [place] [address] POCT-GLUCOSE [id number] 22:17:00 Test Item Value Reference Range Comments POC-GLUCOSE METER (BEAKER) 133 mg/dL 70-110 TESTED AT [address] (test yhet=1845) [place] [address] POCT-GLUCOSE [id number] 20:11:00 Test Item Value Reference Range Comments POC-GLUCOSE METER (BEAKER) 160 mg/dL 70-110 TESTED AT [address] (test hmqn=5045) [place] [address] [id number] 20:02:00 Test Item Value Reference Range Comments PHOSPHORUS (BEAKER) (test ybro=129) 2.4 mg/dL 2.3-4.7 [id number] 20:02:00 Test Item Value Reference Range Comments MAGNESIUM (BEAKER) (test fvaw=454) 2.3 mg/dL 1.6-2.6 BASIC METABOLIC [id number] 20:02:00 Test Item Value Reference Range Comments SODIUM (BEAKER) (test 137 meq/L 136-145 dxrw=385) POTASSIUM (BEAKER) (test 3.1 meq/L 3.5-5.1 yexu=865) CHLORIDE (BEAKER) (test 101 meq/L 98-107 ontw=293) CO2 (BEAKER) (test 26 meq/L 22-29 opce=753) BLOOD UREA NITROGEN 2 mg/dL 7-21 (BEAKER) (test irfl=261) CREATININE (BEAKER) (test 0.54 mg/dL 0.57-1.25 poou=091) GLUCOSE RANDOM (BEAKER) 126 mg/dL 70-105 (test sdtp=790) CALCIUM (BEAKER) (test 8.8 mg/dL 8.4-10.2 vlnb=014) EGFR (BEAKER) (test mL/min/1.73 sq m INSUFFICIENT CLINICAL DATA lone=9221) TO CALCULATE ESTIMATED GFR. POCT-GLUCOSE [id number] 19:23:00 Test Item Value Reference Range Comments POC-GLUCOSE METER (BEAKER) 145 mg/dL 70-110 TESTED AT [address] (test defk=6094) [place] [address] POCT-GLUCOSE [id number] 18:15:00 Test Item Value Reference Range Comments POC-GLUCOSE METER (BEAKER) 185 mg/dL 70-110 TESTED AT [address] (test qsru=8622) [place] [address] POCT-GLUCOSE [id number] 17:08:00 Test Item Value Reference Range Comments POC-GLUCOSE METER (BEAKER) 209 mg/dL 70-110 TESTED AT [address] (test cmmu=2436) [place] [id number] POCT-GLUCOSE [id number] 16:32:00 Test Item Value Reference Range Comments POC-GLUCOSE METER (BEAKER) 222 mg/dL 70-110 TESTED AT [address] (test hxsk=4951) [place] [address] POCT-GLUCOSE [id number] 15:12:00 Test Item Value Reference Range Comments POC-GLUCOSE METER (BEAKER) 186 mg/dL 70-110 TESTED AT [address] (test bnpf=8970) [place] [address] POCT-GLUCOSE [id number] 14:19:00 Test Item Value Reference Range Comments POC-GLUCOSE METER (BEAKER) 126 mg/dL 70-110 TESTED AT [facility] [address] [facility] (test mtbc=7458) [facility] [address] POCT-GLUCOSE [id number] 13:12:00 Test Item Value Reference Range Comments POC-GLUCOSE METER (BEAKER) 128 mg/dL 70-110 TESTED AT [facility] [address] [facility] (test qqzx=6765) [facility] [address] BASIC METABOLIC [id number] 13:07:00 Test Item Value Reference Range Comments SODIUM (BEAKER) (test 138 meq/L 136-145 edaz=908) POTASSIUM (BEAKER) (test 2.9 meq/L 3.5-5.1 jjsb=589) CHLORIDE (BEAKER) (test 104 meq/L 98-107 tkqv=025) CO2 (BEAKER) (test 26 meq/L 22-29 twps=906) BLOOD UREA NITROGEN 2 mg/dL 7-21 (BEAKER) (test semw=918) CREATININE (BEAKER) (test 0.50 mg/dL 0.57-1.25 zajq=585) GLUCOSE RANDOM (BEAKER) 125 mg/dL 70-105 (test kpgj=409) CALCIUM (BEAKER) (test 8.5 mg/dL 8.4-10.2 etod=685) EGFR (BEAKER) (test mL/min/1.73 sq m INSUFFICIENT CLINICAL DATA xtbr=8385) TO CALCULATE ESTIMATED GFR. [id number] 12:55:00 Test Item Value Reference Range Comments PHOSPHORUS (BEAKER) (test ijku=203) 2.9 mg/dL 2.3-4.7 [id number] 12:55:00 Test Item Value Reference Range Comments MAGNESIUM (BEAKER) (test dvhg=454) 2.1 mg/dL 1.6-2.6 URINE [id number] 12:25:00 Test Item Value Reference Range Comments CULTURE (BEAKER) (test helk=0005) See comment <10,000 col/mL jcupo58-51,000 col/mL skin floraU/S, ABDOMINAL, [id number] 11:45:00Reason for exam:->pancreatitis, ? gallstones, cholecystitisShould this be performed at the bedside?->YesAddendum BeginsREPORT STATUS:A Addendum:The MICU resident brought the report to my attention at 11:45 AM January 05, 2019. The addendum does not match the patient's clinical history or original report. The addendum reported is inappropriately matched. The file room and the PACS system will be notified. The original report is appropriately matched to the accession number and clinical history. Signed: Kathi Simental Verified Date/Time: 01/05/2019 11:45:06 Reading Location: [address] Ultrasound Reading RoomAddendum EndsAddendum BeginsREPORT STATUS:A Transplant renal ultrasound Comparison: December 22, 2018 Clinical History: Right lower quadranttransplant kidney March 2014 Technique:Sonographic evaluation of the transplant kidney was performed.69 images were submitted for interpretation, using a five MHz transducer. Doppler images were also submitted for interpretation. Right lower quadrant transplant kidney:The kidney measures 13.2 cm x 7.5 cm [...] submitted arterial waveforms Survey images of the bladderdemonstrate a Mondragon catheter. Impression:Right lower quadrant transplant kidney. There is no evidence of hydronephrosis. The right lower quadrant transplant kidney is normal in length and echogenicity.The visualized arterial waveforms were unremarkable. Signed: Kathi Simentalgeraldsharon Verified Date/Time: 01/05/2019 09:25:40 Reading Location: [address] Ultrasound Reading RoomAddendum EndsFINAL REPORT Abdominal Ultrasound Clinical Diagnosis: Pancreatitis gallstones and cholecystitis Comparison: No comparison Technique: Multiple transaxial and longitudinal images were obtained through the abdomen with real time ultrasonography. Five MHz transducer was utilized. 99 images were submitted for interpretation. Report:Liver: The liver measures 24.3 cm in the right midaxillary line. There are no focal masses. The echogenicity is increased.Spleen: The spleen measures 14.7 cm in the left mid axillary line. Gallbladder: The transverse diameter is 2.9 cm. The wall measures two mm. There are multiple shadowing stones visualized. Biliary tree: There is no evidence of intra or extra hepatic biliary ductal dilatation. The common bile duct measures five mm.Portal vein: Theportal vein measures 13 mm. Pancreas: The pancreatic tail is not well seen secondary to overlying bowel gas. Ascites: NegativePleural Effusion: NegativeRight kidney: The right kidney measures 13.6 cm in length without evidence of hydronephrosis.Left kidney: The left kidney measures 13.3 cm in length without evidence of hydronephrosis.IVC/ Aorta: Partially seen segments demonstrate no abnormality. Maximum transverse dimension aorta is 2.2 cm proximally. Overlying bowel gas obscures distal visualization Impression:Hepatosplenomegaly.Fatty infiltration of the liver.Cholelithiasis. Signed:Kathi Simentalort Verified Date/Time: 01/05 09:04:41 Reading Location: [address] Ultrasound Reading Room POCT-GLUCOSE [id number] 11:16:00 Test Item Value Reference Range Comments POC-GLUCOSE METER (BEAKER) 155 mg/dL 70-110 TESTED AT [address] (test orfz=4755) [facility] [address] POCT-GLUCOSE [id number] 09:02:00 Test Item Value Reference Range Comments POC-GLUCOSE METER (BEAKER) 168 mg/dL 70-110 TESTED AT [address] (test cpyo=8112) [facility] [address] POCT-GLUCOSE [id number] 08:14:00 Test Item Value Reference Range Comments POC-GLUCOSE METER (BEAKER) 179 mg/dL 70-110 TESTED AT [address] (test cegc=3015) [facility] [address] KETONE, [id number] 07:50:00 Test Item Value Reference Range Comments KETONES, BLOOD (BEAKER) (test lfdg=8328) 0.6 mmol/L <0.4 POCT-GLUCOSE [id number] 07:24:00 Test Item Value Reference Range Comments POC-GLUCOSE METER (BEAKER) 188 mg/dL 70-110 TESTED AT [facility] [address] (test drgc=7276) [facility] [address] COMPREHENSIVE METABOLIC [id number] 06:53:00 Test Item Value Reference Range Comments TOTAL PROTEIN (BEAKER) 5.7 gm/dL 6.0-8.3 Specimen slightly (test lwep=377) hemolyzed ALBUMIN (BEAKER) (test 2.8 g/dL 3.5-5.0 Specimen slightly lsyi=7136) hemolyzed ALKALINE PHOSPHATASE 73 U/L 40-150 (BEAKER) (test aoww=812) BILIRUBIN TOTAL (BEAKER) 1.2 mg/dL 0.2-1.2 Specimen slightly (test ciiy=992) hemolyzed SODIUM (BEAKER) (test 136 meq/L 136-145 jxmz=260) POTASSIUM (BEAKER) (test 3.4 meq/L 3.5-5.1 Specimen slightly ztpu=087) hemolyzed CHLORIDE (BEAKER) (test 105 meq/L 98-107 okeg=001) CO2 (BEAKER) (test 22 meq/L 22-29 gldx=009) BLOOD UREA NITROGEN 2 mg/dL 7-21 (BEAKER) (test rllo=131) CREATININE (BEAKER) (test 0.51 mg/dL 0.57-1.25 Specimen slightly ftyu=105) hemolyzed GLUCOSE RANDOM (BEAKER) 164 mg/dL 70-105 (test ikvi=118) CALCIUM (BEAKER) (test 8.4 mg/dL 8.4-10.2 dmom=907) AST (SGOT) (BEAKER) (test 32 U/L 5-34 Specimen slightly etbw=145) hemolyzed ALT (SGPT) (BEAKER) (test 22 U/L 6-55 Specimen slightly ytbx=014) hemolyzed EGFR (BEAKER) (test mL/min/1.73 sq m INSUFFICIENT CLINICAL DATA bube=2412) TO CALCULATE ESTIMATED GFR. [id number] 06:52:00 Test Item Value Reference Range Comments MAGNESIUM (BEAKER) (test 1.9 mg/dL 1.6-2.6 Specimen slightly hemolyzed dfid=828) [id number] 06:52:00 Test Item Value Reference Range Comments PHOSPHORUS (BEAKER) (test 3.0 mg/dL 2.3-4.7 Specimen slightly hemolyzed rbrf=135) [id number] 06:52:00 Test Item Value Reference Range Comments TRIGLYCERIDES (BEAKER) (test 290 mg/dL Specimen slightly hemolyzed yqnw=713) TRIGLYCERIDE REFERENCE RANGELow Risk <150Borderline Risk 150-199High Risk 200-499Very High Risk>=500CBC W/PLT COUNT & AUTO [id number] 06:39:00 Test Item Value Reference Range Comments WHITE BLOOD CELL COUNT (BEAKER) (test edbd=910) 7.4 K/ L 3.5-10.5 RED BLOOD CELL COUNT (BEAKER) (test kchi=880) 3.53 M/ L 3.93-5.22 HEMOGLOBIN (BEAKER) (test piuq=471) 10.0 GM/DL 11.2-15.7 HEMATOCRIT (BEAKER) (test ktlv=163) 30.9 % 34.1-44.9 MEAN CORPUSCULAR VOLUME (BEAKER) (test ifam=334) 87.5 fL 79.4-94.8 MEAN CORPUSCULAR HEMOGLOBIN (BEAKER) (test 28.3 pg 25.6-32.2 tyyn=368) MEAN CORPUSCULAR HEMOGLOBIN CONC (BEAKER) (test 32.4 GM/DL 32.2-35.5 nitw=341) RED CELL DISTRIBUTION WIDTH (BEAKER) (test 13.3 % 11.7-14.4 yabr=824) PLATELET COUNT (BEAKER) (test lyxg=415) 151 K/CU MM 150-450 MEAN PLATELET VOLUME (BEAKER) (test revb=602) 11.3 fL 9.4-12.3 NUCLEATED RED BLOOD CELLS (BEAKER) (test 0 /100 WBC 0-0 wzvn=914) NEUTROPHILS RELATIVE PERCENT (BEAKER) (test 73 % xdbv=349) LYMPHOCYTES RELATIVE PERCENT (BEAKER) (test 17 % szgx=755) MONOCYTES RELATIVE PERCENT (BEAKER) (test 7 % ewfy=915) EOSINOPHILS RELATIVE PERCENT (BEAKER) (test 1 % clvx=035) BASOPHILS RELATIVE PERCENT (BEAKER) (test 0 % hbtz=733) NEUTROPHILS ABSOLUTE COUNT (BEAKER) (test 5.46 K/ L 1.56-6.13 nlnz=126) LYMPHOCYTES ABSOLUTE COUNT (BEAKER) (test 1.27 K/ L 1.18-3.74 fmkf=241) MONOCYTES ABSOLUTE COUNT (BEAKER) (test 0.51 K/ L 0.24-0.36 pqcj=361) EOSINOPHILS ABSOLUTE COUNT (BEAKER) (test 0.09 K/ L 0.04-0.36 gydg=588) BASOPHILS ABSOLUTE COUNT (BEAKER) (test 0.02 K/ L 0.01-0.08 nlro=313) IMMATURE GRANULOCYTES-RELATIVE PERCENT (BEAKER) 1 % 0-1 (test obnb=6532) POCT-GLUCOSE [id number] 06:14:00 Test Item Value Reference Range Comments POC-GLUCOSE METER (BEAKER) 203 mg/dL 70-110 TESTED AT [address] (test tyui=2263) [place] [address] POCT-GLUCOSE [id number] 05:17:00 Test Item Value Reference Range Comments POC-GLUCOSE METER (BEAKER) 200 mg/dL 70-110 TESTED AT [address] (test ahdk=6943) [place] [address] POCT-GLUCOSE [id number] 04:31:00 Test Item Value Reference Range Comments POC-GLUCOSE METER (BEAKER) 206 mg/dL 70-110 TESTED AT [address] (test qtmd=5893) [place] [address] POCT-GLUCOSE [id number] 03:44:00 Test Item Value Reference Range Comments POC-GLUCOSE METER (BEAKER) 178 mg/dL 70-110 TESTED AT [address] (test oyrx=4917) [place] [id number] POCT-GLUCOSE [id number] 03:06:00 Test Item Value Reference Range Comments POC-GLUCOSE METER (BEAKER) 134 mg/dL 70-110 TESTED AT [address] (test avzb=0330) [place] [address] POCT-GLUCOSE [id number] 01:58:00 Test Item Value Reference Range Comments POC-GLUCOSE METER (BEAKER) 156 mg/dL 70-110 TESTED AT [address] (test zqlp=8382) [place] [address] POCT-GLUCOSE [id number] 01:23:00 Test Item Value Reference Range Comments POC-GLUCOSE METER (BEAKER) 161 mg/dL 70-110 TESTED AT [address] (test iohv=6598) [facility] [address] POCT-GLUCOSE [id number] 00:08:00 Test Item Value Reference Range Comments POC-GLUCOSE METER (BEAKER) 197 mg/dL 70-110 TESTED AT [address] (test vgmh=7164) [place] [address] [id number] 23:40:00 Test Item Value Reference Range Comments PHOSPHORUS (BEAKER) (test wmid=697) 1.9 mg/dL 2.3-4.7 [id number] 23:40:00 Test Item Value Reference Range Comments MAGNESIUM (BEAKER) (test tegv=959) 2.2 mg/dL 1.6-2.6 BASIC METABOLIC [id number] 23:40:00 Test Item Value Reference Range Comments SODIUM (BEAKER) (test 136 meq/L 136-145 tkqo=698) POTASSIUM (BEAKER) (test 3.0 meq/L 3.5-5.1 achk=890) CHLORIDE (BEAKER) (test 105 meq/L 98-107 rsnz=505) CO2 (BEAKER) (test 24 meq/L 22-29 tlcv=676) BLOOD UREA NITROGEN 2 mg/dL 7-21 (BEAKER) (test vzaa=805) CREATININE (BEAKER) (test 0.55 mg/dL 0.57-1.25 akem=249) GLUCOSE RANDOM (BEAKER) 164 mg/dL 70-105 (test dgne=582) CALCIUM (BEAKER) (test 8.8 mg/dL 8.4-10.2 rtoa=841) EGFR (BEAKER) (test mL/min/1.73 sq m INSUFFICIENT CLINICAL DATA ujnf=4596) TO CALCULATE ESTIMATED GFR. POCT-GLUCOSE [id number] 23:17:00 Test Item Value Reference Range Comments POC-GLUCOSE METER (BEAKER) 192 mg/dL 70-110 TESTED AT [address] (test yqoc=0845) [facility] [address] POCT-GLUCOSE [id number] 22:09:00 Test Item Value Reference Range Comments POC-GLUCOSE METER (BEAKER) 224 mg/dL 70-110 TESTED AT [facility] [address] [facility] (test lpgq=3604) [place] [id number] POCT-GLUCOSE [id number] 21:21:00 Test Item Value Reference Range Comments POC-GLUCOSE METER (BEAKER) 193 mg/dL 70-110 TESTED AT [address] (test ftli=0292) [place] [id number] POCT-GLUCOSE [id number] 20:20:00 Test Item Value Reference Range Comments POC-GLUCOSE METER (BEAKER) 193 mg/dL 70-110 TESTED AT [address] (test tjqe=6791) [place] [address] RAD, CHEST, 1 VIEW, NON [id number] 17:51:00Reason for exam:->pancreatitis , ? pulm edema, pleural effusionsShould this be performed at the bedside?-> YesFINAL REPORT INDICATION: pancreatitis, ? pulm edema, pleural effusions COMPARISON:None TECHNIQUE: Chest radiograph, single view, portable technique. FINDINGS / IMPRESSION: Pulmonary veins are crowded which probably is related to low lung volumes. There is left base subsegmental atelectasis. No discrete consolidation and no pneumothorax demonstrated. Heart shadow appears normal in size. Osseous structures are unremarkable. Signed: Gunjan Hoskins [facility] Verified Date/Time: 01/04/2019 17:51:37 Reading Location: [address] Consult Reading Room POCT-GLUCOSE [id number] 17:04: 00 Test Item Value Reference Range Comments POC-GLUCOSE METER (BEAKER) 204 mg/dL 70-110 TESTED AT [address] (test qhrf=0464) [place] [id number] BASIC METABOLIC [id number] 16:48:00 Test Item Value Reference Range Comments SODIUM (BEAKER) (test 135 meq/L 136-145 lixj=466) POTASSIUM (BEAKER) (test 3.3 meq/L 3.5-5.1 bqtc=404) CHLORIDE (BEAKER) (test 106 meq/L 98-107 kmgd=198) CO2 (BEAKER) (test 22 meq/L 22-29 ewey=419) BLOOD UREA NITROGEN 2 mg/dL 7-21 (BEAKER) (test iurg=699) CREATININE (BEAKER) (test 0.57 mg/dL 0.57-1.25 fpgs=042) GLUCOSE RANDOM (BEAKER) 177 mg/dL 70-105 (test tmpe=892) CALCIUM (BEAKER) (test 9.0 mg/dL 8.4-10.2 yets=493) EGFR (BEAKER) (test mL/min/1.73 sq m INSUFFICIENT CLINICAL DATA eiwo=0731) TO CALCULATE ESTIMATED GFR. [id number] 16:47:00 Test Item Value Reference Range Comments TRIGLYCERIDES (BEAKER) (test duiw=115) 353 mg/dL TRIGLYCERIDE REFERENCE RANGELow Risk <150Borderline Risk 150-199High Risk 200-499Very High Risk>=[id number] 16:47:00 Test Item Value Reference Range Comments MAGNESIUM (BEAKER) (test wrkg=835) 1.4 mg/dL 1.6-2.6 [id number] 16:47:00 Test Item Value Reference Range Comments PHOSPHORUS (BEAKER) (test nmpz=980) 1.7 mg/dL 2.3-4.7 POCT-GLUCOSE [id number] 16:01:00 Test Item Value Reference Range Comments POC-GLUCOSE METER (BEAKER) 253 mg/dL 70-110 TESTED AT [facility] [address] [facility] (test gbep=1343) [facility] [address] BASIC METABOLIC [id number] 14:54:00 Test Item Value Reference Range Comments SODIUM (BEAKER) (test 133 meq/L 136-145 jhct=950) POTASSIUM (BEAKER) (test 3.7 meq/L 3.5-5.1 Specimen slightly tygf=443) hemolyzed CHLORIDE (BEAKER) (test 104 meq/L 98-107 wezw=078) CO2 (BEAKER) (test 24 meq/L 22-29 mbqx=402) BLOOD UREA NITROGEN 2 mg/dL 7-21 (BEAKER) (test srlr=727) CREATININE (BEAKER) (test 0.57 mg/dL 0.57-1.25 Specimen slightly yzul=238) hemolyzed GLUCOSE RANDOM (BEAKER) 183 mg/dL 70-105 (test petg=281) CALCIUM (BEAKER) (test 9.2 mg/dL 8.4-10.2 csmk=175) EGFR (BEAKER) (test mL/min/1.73 sq m INSUFFICIENT CLINICAL DATA vmvh=7479) TO CALCULATE ESTIMATED GFR. POCT-GLUCOSE [id number] 14:26:00 Test Item Value Reference Range Comments POC-GLUCOSE METER (BEAKER) 184 mg/dL 70-110 TESTED AT [address] (test wtrz=5799) [place] [address] POCT-GLUCOSE [id number] 13:32:00 Test Item Value Reference Range Comments POC-GLUCOSE METER (BEAKER) 259 mg/dL 70-110 TESTED AT [address] (test pgxh=7399) [place] [address] [id number] 12:58:00 Test Item Value Reference Range Comments PHOSPHORUS (BEAKER) (test baeh=612) 1.0 mg/dL 2.3-4.7 [id number] 12:52:00 Test Item Value Reference Range Comments MAGNESIUM (BEAKER) (test imlj=347) 1.5 mg/dL 1.6-2.6 POCT-GLUCOSE [id number] 11:57:00 Test Item Value Reference Range Comments POC-GLUCOSE METER (BEAKER) 232 mg/dL 70-110 TESTED AT [address] (test qsev=4193) [place] [address] POCT-GLUCOSE [id number] 10:40:00 Test Item Value Reference Range Comments POC-GLUCOSE METER (BEAKER) 212 mg/dL 70-110 TESTED AT [address] (test qnpp=5528) [place] [address] BASIC METABOLIC [id number] 10:08:00 Test Item Value Reference Range Comments SODIUM (BEAKER) (test 132 meq/L 136-145 bkzh=688) POTASSIUM (BEAKER) (test 3.9 meq/L 3.5-5.1 Specimen slightly kbht=636) hemolyzed CHLORIDE (BEAKER) (test 104 meq/L 98-107 vtqu=263) CO2 (BEAKER) (test 20 meq/L 22-29 zdse=427) BLOOD UREA NITROGEN 2 mg/dL 7-21 (BEAKER) (test cbqf=314) CREATININE (BEAKER) (test 0.56 mg/dL 0.57-1.25 Specimen slightly yktb=908) hemolyzed GLUCOSE RANDOM (BEAKER) 166 mg/dL 70-105 (test zgki=422) CALCIUM (BEAKER) (test 9.5 mg/dL 8.4-10.2 nvkl=155) EGFR (BEAKER) (test mL/min/1.73 sq m INSUFFICIENT CLINICAL DATA uqyn=6735) TO CALCULATE ESTIMATED GFR. Specimen slightly [id number] 10:02:00 Test Item Value Reference Range Comments PHOSPHORUS (BEAKER) (test 1.4 mg/dL 2.3-4.7 Specimen slightly hemolyzed tadu=572) [id number] 09:59:00 Test Item Value Reference Range Comments MAGNESIUM (BEAKER) (test 1.8 mg/dL 1.6-2.6 Specimen slightly hemolyzed exgp=730) POCT-GLUCOSE [id number] 08:14:00 Test Item Value Reference Range Comments POC-GLUCOSE METER (BEAKER) 220 mg/dL 70-110 TESTED AT [address] (test akxm=7484) [place] [id number] POCT-GLUCOSE [id number] 07:03:00 Test Item Value Reference Range Comments POC-GLUCOSE METER (BEAKER) 203 mg/dL 70-110 TESTED AT [address] (test mhid=8888) [place] [id number] 06:33:00 Test Item Value Reference Range Comments PHOSPHORUS (BEAKER) (test zhuu=050) 1.5 mg/dL 2.3-4.7 COMPREHENSIVE METABOLIC [id number] 06:31:00 Test Item Value Reference Range Comments TOTAL PROTEIN (BEAKER) 6.8 gm/dL 6.0-8.3 (test xidm=605) ALBUMIN (BEAKER) (test 3.4 g/dL 3.5-5.0 uruu=4178) ALKALINE PHOSPHATASE 74 U/L 40-150 (BEAKER) (test xwaz=242) BILIRUBIN TOTAL (BEAKER) 2.0 mg/dL 0.2-1.2 (test sbnv=741) SODIUM (BEAKER) (test 131 meq/L 136-145 ectl=306) POTASSIUM (BEAKER) (test 3.4 meq/L 3.5-5.1 wtis=326) CHLORIDE (BEAKER) (test 105 meq/L 98-107 ctod=575) CO2 (BEAKER) (test 19 meq/L 22-29 xvok=717) BLOOD UREA NITROGEN 2 mg/dL 7-21 (BEAKER) (test dpcl=264) CREATININE (BEAKER) (test 0.58 mg/dL 0.57-1.25 imxu=855) GLUCOSE RANDOM (BEAKER) 180 mg/dL 70-105 (test mtyy=785) CALCIUM (BEAKER) (test 9.1 mg/dL 8.4-10.2 ldgh=275) AST (SGOT) (BEAKER) (test 20 U/L 5-34 qboo=182) ALT (SGPT) (BEAKER) (test 16 U/L 6-55 tnsv=951) EGFR (BEAKER) (test mL/min/1.73 sq m INSUFFICIENT CLINICAL DATA thpa=3994) TO CALCULATE ESTIMATED GFR. [id number] 06:29:00 Test Item Value Reference Range Comments TRIGLYCERIDES (BEAKER) (test hmuq=183) 533 mg/dL TRIGLYCERIDE REFERENCE RANGELow Risk <150Borderline Risk 150-199High Risk 200-499Very High Risk>=[id number] 06:29:00 Test Item Value Reference Range Comments MAGNESIUM (BEAKER) (test jtvx=388) 1.7 mg/dL 1.6-2.6 POCT-GLUCOSE [id number] 06:07:00 Test Item Value Reference Range Comments POC-GLUCOSE METER (BEAKER) 184 mg/dL 70-110 TESTED AT [address] (test ruup=9086) [facility] [address] CBC W/PLT COUNT & AUTO [id number] 06:07:00 Test Item Value Reference Range Comments WHITE BLOOD CELL COUNT (BEAKER) (test tyuo=088) 9.0 K/ L 3.5-10.5 RED BLOOD CELL COUNT (BEAKER) (test rtbz=645) 4.29 M/ L 3.93-5.22 HEMOGLOBIN (BEAKER) (test efge=370) 11.9 GM/DL 11.2-15.7 HEMATOCRIT (BEAKER) (test wonw=248) 35.9 % 34.1-44.9 MEAN CORPUSCULAR VOLUME (BEAKER) (test xztf=086) 83.7 fL 79.4-94.8 MEAN CORPUSCULAR HEMOGLOBIN (BEAKER) (test 27.7 pg 25.6-32.2 gwjz=874) MEAN CORPUSCULAR HEMOGLOBIN CONC (BEAKER) (test 33.1 GM/DL 32.2-35.5 msuz=950) RED CELL DISTRIBUTION WIDTH (BEAKER) (test 13.0 % 11.7-14.4 unls=056) PLATELET COUNT (BEAKER) (test zevt=793) 206 K/CU MM 150-450 MEAN PLATELET VOLUME (BEAKER) (test ubtg=859) 10.3 fL 9.4-12.3 NUCLEATED RED BLOOD CELLS (BEAKER) (test 0 /100 WBC 0-0 lbjl=555) NEUTROPHILS RELATIVE PERCENT (BEAKER) (test 75 % rrtc=724) LYMPHOCYTES RELATIVE PERCENT (BEAKER) (test 17 % uiab=184) MONOCYTES RELATIVE PERCENT (BEAKER) (test 6 % zrnd=388) EOSINOPHILS RELATIVE PERCENT (BEAKER) (test 0 % mtxk=918) BASOPHILS RELATIVE PERCENT (BEAKER) (test 0 % cosx=828) NEUTROPHILS ABSOLUTE COUNT (BEAKER) (test 6.78 K/ L 1.56-6.13 akkn=825) LYMPHOCYTES ABSOLUTE COUNT (BEAKER) (test 1.57 K/ L 1.18-3.74 ldrm=139) MONOCYTES ABSOLUTE COUNT (BEAKER) (test 0.51 K/ L 0.24-0.36 wuln=947) EOSINOPHILS ABSOLUTE COUNT (BEAKER) (test 0.03 K/ L 0.04-0.36 qcva=667) BASOPHILS ABSOLUTE COUNT (BEAKER) (test 0.04 K/ L 0.01-0.08 kmxp=373) IMMATURE GRANULOCYTES-RELATIVE PERCENT (BEAKER) 1 % 0-1 (test lcvn=1430) POCT-GLUCOSE [id number] 05:09:00 Test Item Value Reference Range Comments POC-GLUCOSE METER (BEAKER) 206 mg/dL 70-110 TESTED AT [facility] [address] (test pglm=0788) [facility] [address] POCT-GLUCOSE [id number] 04:25:00 Test Item Value Reference Range Comments POC-GLUCOSE METER (BEAKER) 222 mg/dL 70-110 TESTED AT [address] (test ezff=6383) [facility] [address] POCT-GLUCOSE [id number] 03:25:00 Test Item Value Reference Range Comments POC-GLUCOSE METER (BEAKER) 216 mg/dL 70-110 TESTED AT [address] (test ewqv=9030) [facility] [address] POCT-GLUCOSE [id number] 02:25:00 Test Item Value Reference Range Comments POC-GLUCOSE METER (BEAKER) 191 mg/dL 70-110 TESTED AT [address] (test ynso=1824) [facility] [address] SCREEN, [id number] 01:36:00 Test Item Value Reference Range Comments TEST URINE (BEAKER) (test vprx=594) Negative [id number] 01:21:00 Test Item Value Reference Range Comments PHOSPHORUS (BEAKER) (test pvpv=961) 1.2 mg/dL 2.3-4.7 BASIC METABOLIC [id number] 01:16:00 Test Item Value Reference Range Comments SODIUM (BEAKER) (test 133 meq/L 136-145 nkwj=018) POTASSIUM (BEAKER) (test 3.1 meq/L 3.5-5.1 mucj=088) CHLORIDE (BEAKER) (test 106 meq/L 98-107 ttrg=336) CO2 (BEAKER) (test 17 meq/L 22-29 cqwv=240) BLOOD UREA NITROGEN 2 mg/dL 7-21 (BEAKER) (test kqxm=453) CREATININE (BEAKER) (test 0.63 mg/dL 0.57-1.25 tuns=999) GLUCOSE RANDOM (BEAKER) 164 mg/dL 70-105 (test bzeg=720) CALCIUM (BEAKER) (test 9.5 mg/dL 8.4-10.2 watw=374) EGFR (BEAKER) (test mL/min/1.73 sq m INSUFFICIENT CLINICAL DATA gpmi=9458) TO CALCULATE ESTIMATED GFR. [id number] 01:09:00 Test Item Value Reference Range Comments MAGNESIUM (BEAKER) (test lshd=770) 1.6 mg/dL 1.6-2.6 POCT-GLUCOSE [id number] 00:05:00 Test Item Value Reference Range Comments POC-GLUCOSE METER (BEAKER) 195 mg/dL 70-110 TESTED AT [address] (test idyr=7822) [facility] [address] POCT-GLUCOSE [id number] 23:05:00 Test Item Value Reference Range Comments POC-GLUCOSE METER (BEAKER) 198 mg/dL 70-110 TESTED AT [address] (test sxrt=1982) [facility] [address] POCT-GLUCOSE [id number] 22:13:00 Test Item Value Reference Range Comments POC-GLUCOSE METER (BEAKER) 212 mg/dL 70-110 TESTED AT [address] (test spyb=1771) [facility] [address] POCT-GLUCOSE [id number] 21:23:00 Test Item Value Reference Range Comments POC-GLUCOSE METER (BEAKER) 221 mg/dL 70-110 TESTED AT [address] (test qcmm=7749) [facility] [address] BASIC METABOLIC [id number] 20:24:00 Test Item Value Reference Range Comments SODIUM (BEAKER) (test 131 meq/L 136-145 txep=833) POTASSIUM (BEAKER) (test 3.7 meq/L 3.5-5.1 Specimen slightly syae=659) hemolyzed CHLORIDE (BEAKER) (test 105 meq/L 98-107 vzkn=355) CO2 (BEAKER) (test 13 meq/L 22-29 ppsg=086) BLOOD UREA NITROGEN 2 mg/dL 7-21 (BEAKER) (test vhsp=710) CREATININE (BEAKER) (test 0.70 mg/dL 0.57-1.25 Specimen slightly tgko=667) hemolyzed GLUCOSE RANDOM (BEAKER) 201 mg/dL 70-105 (test vdee=874) CALCIUM (BEAKER) (test 9.0 mg/dL 8.4-10.2 izwl=266) EGFR (BEAKER) (test mL/min/1.73 sq m INSUFFICIENT CLINICAL DATA dknr=1166) TO CALCULATE ESTIMATED GFR. [id number] 20:22:00 Test Item Value Reference Range Comments MAGNESIUM (BEAKER) (test 2.0 mg/dL 1.6-2.6 Specimen slightly hemolyzed zwgx=503) [id number] 20:22:00 Test Item Value Reference Range Comments PHOSPHORUS (BEAKER) (test 2.1 mg/dL 2.3-4.7 Specimen slightly hemolyzed hvmp=410) [id number] 20:22:00 Test Item Value Reference Range Comments TRIGLYCERIDES (BEAKER) (test 941 mg/dL Specimen slightly hemolyzed jycv=162) TRIGLYCERIDE REFERENCE RANGELow Risk <150Borderline Risk 150-199High Risk 200-499Very High Risk>=500POCT-GLUCOSE [id number] 20:13:00 Test Item Value Reference Range Comments POC-GLUCOSE METER (BEAKER) 238 mg/dL 70-110 TESTED AT [address] (test ewoq=4964) [facility] [address] POCT-GLUCOSE [id number] 19:06:00 Test Item Value Reference Range Comments POC-GLUCOSE METER (BEAKER) 235 mg/dL 70-110 TESTED AT [address] (test gxks=9003) [facility] [address] POCT-GLUCOSE [id number] 18:04:00 Test Item Value Reference Range Comments POC-GLUCOSE METER (BEAKER) 217 mg/dL 70-110 TESTED AT [address] (test bguf=0016) [facility] [address] POCT-GLUCOSE [id number] 17:04:00 Test Item Value Reference Range Comments POC-GLUCOSE METER (BEAKER) 218 mg/dL 70-110 TESTED AT [address] (test mpdg=8722) [facility] [address] BASIC METABOLIC [id number] 16:46:00 Test Item Value Reference Range Comments SODIUM (BEAKER) (test 130 meq/L 136-145 mzvy=474) POTASSIUM (BEAKER) (test 4.2 meq/L 3.5-5.1 Specimen moderately ftkx=791) hemolyzed CHLORIDE (BEAKER) (test 106 meq/L 98-107 wzlk=453) CO2 (BEAKER) (test 11 meq/L 22-29 ropn=336) BLOOD UREA NITROGEN 3 mg/dL 7-21 (BEAKER) (test hjmo=375) CREATININE (BEAKER) (test 0.69 mg/dL 0.57-1.25 Specimen moderately flrl=224) hemolyzed GLUCOSE RANDOM (BEAKER) 165 mg/dL 70-105 (test ymys=261) CALCIUM (BEAKER) (test 9.0 mg/dL 8.4-10.2 qjlk=624) EGFR (BEAKER) (test mL/min/1.73 sq m INSUFFICIENT CLINICAL DATA iywz=4503) TO CALCULATE ESTIMATED GFR. [id number] 16:40:00 Test Item Value Reference Range Comments MAGNESIUM (BEAKER) (test 2.1 mg/dL 1.6-2.6 Specimen moderately hemolyzed noin=542) [id number] 16:40:00 Test Item Value Reference Range Comments PHOSPHORUS (BEAKER) (test 1.7 mg/dL 2.3-4.7 Specimen moderately hemolyzed mhyd=368) URINALYSIS W/ [id number] 16:31:00 Test Item Value Reference Range Comments COLOR (BEAKER) (test voia=000) Yellow CLARITY (BEAKER) (test susc=963) Clear SPECIFIC GRAVITY UA (BEAKER) (test 1.014 1.001-1.035 ntdr=764) PH UA (BEAKER) (test mdjt=676) 5.5 5.0-8.0 PROTEIN UA (BEAKER) (test jied=479) 100 mg/dL Negative GLUCOSE UA (BEAKER) (test dhwm=388) >1000 mg/dL Negative KETONES UA (BEAKER) (test ydji=275) >150 mg/dL Negative BILIRUBIN UA (BEAKER) (test lzgs=866) Negative Negative BLOOD UA (BEAKER) (test evkr=261) Small Negative NITRITE UA (BEAKER) (test fnmg=314) Negative Negative LEUKOCYTE ESTERASE UA (BEAKER) (test Negative Negative rbdv=392) UROBILINOGEN UA (BEAKER) (test zlru=544) 2.0 mg/dL 0.2-1.0 RBC UA (BEAKER) (test nwpf=865) < /HPF WBC UA (BEAKER) (test ggtd=202) 1 /HPF BACTERIA (BEAKER) (test casp=849) Rare MUCUS (BEAKER) (test biwy=8285) Occasional SQUAMOUS EPITHELIAL (BEAKER) (test 1 /HPF phpz=963) SOURCE(BEAKER) (test oksg=2763) Urine, Clean Catch POCT-GLUCOSE [id number] 16:06:00 Test Item Value Reference Range Comments POC-GLUCOSE METER (BEAKER) 189 mg/dL 70-110 TESTED AT [address] (test efun=2450) [place] [address] POCT-GLUCOSE [id number] 15:17:00 Test Item Value Reference Range Comments POC-GLUCOSE METER (BEAKER) 205 mg/dL 70-110 TESTED AT [address] (test oipb=7168) [place] [address] POCT-GLUCOSE [id number] 14:00:00 Test Item Value Reference Range Comments POC-GLUCOSE METER (BEAKER) 204 mg/dL 70-110 TESTED AT [address] (test ffkn=7855) [place] [address] BASIC METABOLIC [id number] 12:26:00 Test Item Value Reference Range Comments SODIUM (BEAKER) (test 130 meq/L 136-145 bfjk=832) POTASSIUM (BEAKER) (test 4.1 meq/L 3.5-5.1 Specimen slightly hkou=288) hemolyzed CHLORIDE (BEAKER) (test 107 meq/L 98-107 gkft=010) CO2 (BEAKER) (test 8 meq/L 22-29 kozk=304) BLOOD UREA NITROGEN 3 mg/dL 7-21 (BEAKER) (test jetm=229) CREATININE (BEAKER) (test 0.72 mg/dL 0.57-1.25 Specimen slightly vgeb=091) hemolyzed GLUCOSE RANDOM (BEAKER) 213 mg/dL 70-105 (test pimf=755) CALCIUM (BEAKER) (test 9.1 mg/dL 8.4-10.2 xnkq=934) EGFR (BEAKER) (test mL/min/1.73 sq m INSUFFICIENT CLINICAL DATA bbgt=3267) TO CALCULATE ESTIMATED GFR. POCT-GLUCOSE [id number] 12:14:00 Test Item Value Reference Range Comments POC-GLUCOSE METER (BEAKER) 237 mg/dL 70-110 TESTED AT [address] (test aelu=3529) [place] [address] [id number] 12:12:00 Test Item Value Reference Range Comments MAGNESIUM (BEAKER) (test 2.0 mg/dL 1.6-2.6 Specimen slightly hemolyzed lfxv=067) [id number] 12:12:00 Test Item Value Reference Range Comments PHOSPHORUS (BEAKER) (test 1.6 mg/dL 2.3-4.7 Specimen slightly hemolyzed npcj=249) [id number] 12:12:00 Test Item Value Reference Range Comments POTASSIUM (BEAKER) (test 4.1 meq/L 3.5-5.1 Specimen slightly hemolyzed iyhg=695) ALT (SGPT)2019-01-03 12:12:00 Test Item Value Reference Range Comments ALT (SGPT) (BEAKER) (test 20 U/L 6-55 Specimen slightly hemolyzed jaam=561) Specimen slightly lipemicAST (SGOT)2019-01-03 12:12:00 Test Item Value Reference Range Comments AST (SGOT) (BEAKER) (test 18 U/L 5-34 Specimen slightly hemolyzed jbcw=354) Specimen slightly lipemicBILIRUBIN, ADULT [id number] 12:12:00 Test Item Value Reference Range Comments BILIRUBIN TOTAL (BEAKER) (test 1.6 mg/dL 0.2-1.2 Specimen slightly hemolyzed rcwp=525) POCT-GLUCOSE [id number] 11:12:00 Test Item Value Reference Range Comments POC-GLUCOSE METER (BEAKER) 231 mg/dL 70-110 TESTED AT [address] (test abmg=7611) [place] [address] KETONE, [id number] 10:45:00 Test Item Value Reference Range Comments KETONES, BLOOD (BEAKER) (test xswt=3934) 2.2 mmol/L <0.4 POCT-GLUCOSE [id number] 10:14:00 Test Item Value Reference Range Comments POC-GLUCOSE METER (BEAKER) 221 mg/dL 70-110 TESTED AT [address] (test vghs=5470) [facility] [address] BLOOD GAS, [id number] 09:54:00 Test Item Value Reference Range Comments PH VENOUS (BEAKER) (test uryz=109) 7.22 7.32-7.42 PCO2 VENOUS (BEAKER) (test dqim=915) 28 mmHg 41-51 PO2 VENOUS (BEAKER) (test jpdz=475) 41 mmHg 25-40 O2 SATURATION VENOUS (BEAKER) (test jdoz=553) 68.2 % 40.0-70.0 HCO3 VENOUS (BEAKER) (test bwbg=802) 11 mmol/L 21-29 BASE EXCESS VENOUS (BEAKER) (test xrfx=548) -14.9 mmol/L -2.0-3.0 PATIENT TEMPERATURE (BEAKER) (test yrar=4509) 37.0 C HEMOGLOBIN [id number] 09:42:00 Test Item Value Reference Range Comments HEMOGLOBIN A1C (BEAKER) (test ytlg=383) 12.8 % 4.3-6.1 TSH/FREE T4 IF [id number] 09:19:00 Test Item Value Reference Range Comments THYROID STIMULATING HORMONE (BEAKER) (test 0.86 uIU/mL 0.35-4.94 kezr=224) BASIC METABOLIC [id number] 09:11:00 Test Item Value Reference Range Comments SODIUM (BEAKER) (test 132 meq/L 136-145 vtcm=524) POTASSIUM (BEAKER) (test 4.6 meq/L 3.5-5.1 Specimen slightly dvpc=860) hemolyzed CHLORIDE (BEAKER) (test 107 meq/L 98-107 fhub=017) CO2 (BEAKER) (test < meq/L 22-29 dmdd=810) BLOOD UREA NITROGEN 3 mg/dL 7-21 (BEAKER) (test dxoh=662) CREATININE (BEAKER) (test 0.86 mg/dL 0.57-1.25 Specimen slightly bxhy=345) hemolyzed GLUCOSE RANDOM (BEAKER) 253 mg/dL 70-105 (test bokc=394) CALCIUM (BEAKER) (test 9.9 mg/dL 8.4-10.2 iyxf=406) EGFR (BEAKER) (test mL/min/1.73 sq m INSUFFICIENT CLINICAL DATA yvlt=1537) TO CALCULATE ESTIMATED GFR. POCT-GLUCOSE [id number] 09:10:00 Test Item Value Reference Range Comments POC-GLUCOSE METER (BEAKER) 241 mg/dL 70-110 TESTED AT [facility] [address] [facility] (test qhjq=7455) [facility] [address] LIPID [id number] 09:05:00 Test Item Value Reference Range Comments TRIGLYCERIDES (BEAKER) (test 1710 mg/dL Specimen slightly hemolyzed utnx=852) CHOLESTEROL (BEAKER) (test 484 mg/dL Specimen slightly hemolyzed zaiw=091) HDL CHOLESTEROL (BEAKER) (test 22 mg/dL filq=928) Calculated LDL not valid if triglyceride >400 mg/dLTriglyceride Reference Range: Low Risk <150 Borderline 150-199 High Risk 200-499 Very High Risk >=500Cholesterol Reference Range: Low Risk <200 Borderline 200-239 High Risk >240HDL Cholesterol Reference Range: Low Risk >=60 High Risk <40LDL Cholesterol ReferenceRange: Optimal <100 Near Optimal 100-129 Borderline 130-159 High 160-189 Very High >=190 Specimen markedly [id number] 09:03:00 Test Item Value Reference Range Comments MAGNESIUM (BEAKER) (test 2.3 mg/dL 1.6-2.6 Specimen slightly hemolyzed cxkw=714) [id number] 09:03:00 Test Item Value Reference Range Comments PHOSPHORUS (BEAKER) (test 2.3 mg/dL 2.3-4.7 Specimen slightly hemolyzed ligw=493) [id number] 09:03:00 Test Item Value Reference Range Comments AMYLASE (BEAKER) (test gnsw=005) 49 U/L 25-125 Specimen slightly hemolyzed [id number] 09:03:00 Test Item Value Reference Range Comments LIPASE (BEAKER) (test bmjg=789) 154 U/L 8-78 [id number] 08:44:00 Test Item Value Reference Range Comments MAGNESIUM (BEAKER) (test 2.4 mg/dL 1.6-2.6 Specimen moderately hemolyzed rwij=725) [id number] 08:44:00 Test Item Value Reference Range Comments PHOSPHORUS (BEAKER) (test 2.4 mg/dL 2.3-4.7 Specimen moderately hemolyzed rveu=421) LACTIC ACID, VENOUS, WHOLE [id number] 08:43:00 Test Item Value Reference Range Comments LACTATE BLOOD VENOUS (2) 1.1 mmol/L 0.5-2.2 Specimen moderately hemolyzed (BEAKER) (test ohda=5940) Specimen slightly lipemicCBC W/PLT COUNT & AUTO [id number] 08:40 :00 Test Item Value Reference Range Comments WHITE BLOOD CELL COUNT (BEAKER) (test zvqu=208) 11.7 K/ L 3.5-10.5 RED BLOOD CELL COUNT (BEAKER) (test wkbx=352) 5.05 M/ L 3.93-5.22 HEMOGLOBIN (BEAKER) (test znvr=891) 14.3 GM/DL 11.2-15.7 HEMATOCRIT (BEAKER) (test apev=958) 43.6 % 34.1-44.9 MEAN CORPUSCULAR VOLUME (BEAKER) (test qsyx=881) 86.3 fL 79.4-94.8 MEAN CORPUSCULAR HEMOGLOBIN (BEAKER) (test 28.3 pg 25.6-32.2 wnfu=291) MEAN CORPUSCULAR HEMOGLOBIN CONC (BEAKER) (test 32.8 GM/DL 32.2-35.5 goar=412) RED CELL DISTRIBUTION WIDTH (BEAKER) (test 12.8 % 11.7-14.4 zmyp=763) PLATELET COUNT (BEAKER) (test rskq=197) 244 K/CU MM 150-450 MEAN PLATELET VOLUME (BEAKER) (test eljy=566) 10.8 fL 9.4-12.3 NUCLEATED RED BLOOD CELLS (BEAKER) (test 0 /100 WBC 0-0 oehl=221) NEUTROPHILS RELATIVE PERCENT (BEAKER) (test 81 % roij=812) LYMPHOCYTES RELATIVE PERCENT (BEAKER) (test 12 % kcle=391) MONOCYTES RELATIVE PERCENT (BEAKER) (test 6 % ljpe=749) EOSINOPHILS RELATIVE PERCENT (BEAKER) (test 0 % blvs=307) BASOPHILS RELATIVE PERCENT (BEAKER) (test 0 % bjmc=450) NEUTROPHILS ABSOLUTE COUNT (BEAKER) (test 9.41 K/ L 1.56-6.13 jqig=120) LYMPHOCYTES ABSOLUTE COUNT (BEAKER) (test 1.44 K/ L 1.18-3.74 gqax=549) MONOCYTES ABSOLUTE COUNT (BEAKER) (test 0.69 K/ L 0.24-0.36 cmbg=810) EOSINOPHILS ABSOLUTE COUNT (BEAKER) (test 0.00 K/ L 0.04-0.36 tzpj=[id number]) BASOPHILS ABSOLUTE COUNT (BEAKER) (test 0.04 K/ L 0.01-0.08 ijcd=[id number]) IMMATURE GRANULOCYTES-RELATIVE PERCENT (BEAKER) 1 % 0-1 (test wuoa=0592) POCT-GLUCOSE [id number] 08:12:00 Test Item Value Reference Range Comments POC-GLUCOSE METER (BEAKER) 247 mg/dL 70-110 TESTED AT [address] (test dzjy=3829) [place] [address] POCT-GLUCOSE [id number] 07:06:00 Test Item Value Reference Range Comments POC-GLUCOSE METER (BEAKER) 245 mg/dL 70-110 TESTED AT [address] (test hwfv=9074) [place] [address]
--- OUTSIDE RECORDS SUMMARY | 2019-03-11 23:51 | XMS REPORT ---
:1995 Author Organization eClinicalWorks Care Team Providers Name Role Phone Joana Ish Provider Role Unavailable Allergies, Adverse Reactions, Alerts Substance Reaction Event Type N.K.D.A. 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 Problem Calculus of gallbladder without K80.20 Active cholecystitis without obstruction Problem Hypertriglyceridemia E78.1 Active Assessment Calculus of gallbladder without K80.20 Active cholecystitis without obstruction Problem Type 2 diabetes mellitus with E11.10 Active ketoacidosis without coma Problem Adult BMI 45.0-49.9 kg/sq m Z68.42 Active Medications Medication Code Code Instructions Start End Status Dosage System Date Date Tre [facility] 33522681395 200 UNIT/ML Active as directed FlexTouch Subcutaneous Gemfibrozil [facility] 72621453793 600 MG Orally Active 1 tablet Twice a day Fish Oil ND 41761582002 1000 MG Orally May Active 1 capsule Once a day 2018 NovoLog Flexpen [facility] 06473303422 100 UNIT/ML Active as directed Subcutaneous Results No Known Results Summary Purpose eClinicalWorks Submission
--- OUTSIDE RECORDS SUMMARY | 2019-03-11 23:51 | XMS REPORT ---
:1995 Author Organization eClinicalWorks Care Team Providers Name Role Phone Reaves, [facility] Provider Role Unavailable Allergies, Adverse Reactions, Alerts Substance Reaction Event Type N.K.D.A. 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 Problem Calculus of gallbladder without K80.20 Active cholecystitis without obstruction Problem Hypertriglyceridemia E78.1 Active Assessment Well adult on routine health check Z00.00 Active Problem Type 2 diabetes mellitus with E11.10 Active ketoacidosis without coma Problem Adult BMI 45.0-49.9 kg/sq m Z68.42 Active Medications Medication Code Code Instructions Start End Status Dosage System Date Date Tresiba [facility] 85160353361 200 UNIT/ML Active as directed FlexTouch Subcutaneous NovoLog Flexpen ND 59006740406 100 UNIT/ML Active as directed Subcutaneous Fish Oil [facility] 27544787369 1000 MG Orally May Active 1 capsule Once a day 2018 Gemfibrozil [facility] 84942511214 600 MG Orally Active 1 tablet Twice a day Results No Known Results Summary Purpose eClinicalWorks Submission
--- NOTE | 2019-03-11 23:57 | EDPHYS ---
Physician Documentation [facility] Name: Radha Capps Age: 23 yrs Sex: Female : 1995 Arrival Date: 03/11/2019 Time: 23:47 Bed 7 Private MD: Reyes Reaves ED Physician Kalyan Fischer HPI: 03/12 00:30 This 23 yrs old Female presents to ER via Ambulatory with complaints of Arm jr8 Problem. 00:30 The complaints affect the left bicep. Modifying factors: The symptoms are alleviated by jr8 nothing. the symptoms are aggravated by nothing. Associated signs and symptoms: The patient has no apparent associated signs or symptoms. Severity of symptoms: At their worst the symptoms were mild, in the emergency department the symptoms are unchanged. The patient has not experienced similar symptoms in the past. The patient has been recently seen by a physician:. Patient recently had Implanon contraceptive device taken out of arm. Stated that they did not suture her up and was worried why they did not. Denies any pain, discharge, redness to site . 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 - Social history:: Smoking status: Patient/guardian denies using tobacco, never smoked, Patient/guardian denies using alcohol, street drugs. - Ebola Screening: : Patient negative for fever greater than or equal to 101.5 degrees Fahrenheit, and additional compatible Ebola Virus Disease symptoms Patient denies exposure to infectious person Patient denies travel to an Ebola-affected area in the 21 days before illness onset. ROS: 00:30 Eyes: Negative for injury, pain, redness, and discharge, ENT: Negative for injury, jr8 pain, and discharge, Neck: Negative for injury, pain, and swelling, Cardiovascular: Negative for chest pain, palpitations, and edema, Respiratory: Negative for shortness of breath, cough, wheezing, and pleuritic chest pain, Abdomen/GI: Negative for abdominal pain, nausea, vomiting, diarrhea, and constipation, Back: Negative for injury and pain, MS/Extremity: Negative for injury and deformity, Skin: Negative for injury, rash, and discoloration, Neuro: Negative for headache, weakness, numbness, tingling, and seizure. Exam: 00:30 Eyes: Pupils equal round and reactive to light, extra-ocular motions intact. Lids and jr8 lashes normal. Conjunctiva and sclera are non-icteric and not injected. Cornea within normal limits. Periorbital areas with no swelling, redness, or edema. ENT: Nares patent. No nasal discharge, no septal abnormalities noted. Tympanic membranes are normal and external auditory canals are clear. Oropharynx with no redness, swelling, or masses, exudates, or evidence of obstruction, uvula midline. Mucous membranes moist. Neck: Trachea midline, no thyromegaly or masses palpated, and no cervical lymphadenopathy. Supple, full range of motion without nuchal rigidity, or vertebral point tenderness. No Meningismus. Cardiovascular: Regular rate and rhythm with a normal S1 and S2. No gallops, murmurs, or rubs. Normal PMI, no JVD. No pulse deficits. Respiratory: Lungs have equal breath sounds bilaterally, clear to auscultation and percussion. No rales, rhonchi or wheezes noted. No increased work of breathing, no retractions or nasal flaring. Abdomen/GI: Soft, non-tender, with normal bowel sounds. No distension or tympany. No guarding or rebound. No evidence of tenderness throughout. Back: No spinal tenderness. No costovertebral tenderness. Full range of motion. MS/ Extremity: Pulses equal, no cyanosis. Neurovascular intact. Full, normal range of motion. Neuro: Awake and alert, GCS 15, oriented to person, place, time, and situation. Cranial nerves II-XII grossly intact. Motor strength 5/5 in all extremities. Sensory grossly intact. Cerebellar exam normal. Normal gait. 00:30 Skin: Patient has sub centimeter incision that is taped over with steri strips to left biceps region. No bleeding, discharge, or erythema noted to incision site. Non tender to touch. Vital Signs: 00:04 BP 126 / 58; Pulse 65; Resp 16; Temp 98.1; Pulse Ox 100% ; Weight 124.74 kg; Height 5 tl1 ft. 5 in. (165.10 cm); Pain 6/10; 00:04 Body Mass Index 45.76 (124.74 kg, 165.10 cm) tl1 MDM: 03/11 23:49 Patient medically screened. jr8 23:56 Data reviewed: vital signs, nurses notes, and as a result, I will discharge patient. jr8 Data interpreted: Pulse oximetry: on room air is 100 %. Interpretation: normal. Counseling: I had a detailed discussion with the patient and/or guardian regarding: the historical points, exam findings, and any diagnostic results supporting the discharge/admit diagnosis, the need for outpatient follow up, a family practitioner, to return to the emergency department if symptoms worsen or persist or if there are any questions or concerns that arise at home. 03/12 00:30 ED course: Counseled patient on wound healing and secondary wound healing from surgical jr8 sites. That this particular site normally does not require primary closure. That you should keep the steri strips on until they fall off or over 10 days. Do not submerge area in water. Keep bandaged otherwise and watch for signs of infection. Patient good with this plan and will f/u if needed . Administered Medications: No medications were administered Disposition: 00:55 Co-signature as Attending Physician, Kalyan Fischer MD. rn Disposition: 03/11/19 23:56 Discharged to Home. Impression: Encounter for wound check . - Condition is Stable. - Discharge Instructions: Delayed Wound Closure, Sterile Tape Wound Care. - Medication Reconciliation Form, Thank You Letter, Antibiotic Education, Prescription Opioid Use form. - Follow up: Private Physician; When: As needed; Reason: Recheck today's complaints, Continuance of care, Re-evaluation by your physician. - Problem is new. - Symptoms have improved. Signatures: Kalyan Fischer MD MD rn Roszak, Josh, PA PA jr8 Jillian Fischer RN RN tl1 Corrections: (The following items were deleted from the chart) 00:07 03/11 23:56 03/11/2019 23:56 Discharged to Home. Impression: Encounter for wound check tl1 . Condition is Stable. Forms are Medication Reconciliation Form, Thank You Letter, Antibiotic Education, Prescription Opioid Use. Follow up: Private Physician; When: As needed; Reason: Recheck today's complaints, Continuance of care, Re-evaluation by your physician. Problem is new. Symptoms have improved. jr8
--- NOTE | 2019-03-12 00:08 | ER ---
Nurse's Notes [facility] Name: Radha Capps Age: 23 yrs Sex: Female : 1995 Arrival Date: 03/11/2019 Time: 23:47 Bed 7 Private MD: Reyes Reaves Diagnosis: Encounter for wound check Presentation: 03/11 23:56 Presenting complaint: Patient states: I had my control implant removed from my tl1 left upper arm yesterday and they only place steri strips over it and didn't suture it. Patient concerned about it not being sutured. Transition of care: patient was not received from another setting of care. Onset of symptoms was March 11, 2019. Risk Assessment: Do you want to hurt yourself or someone else? Patient reports no desire to harm self or others. Initial Sepsis Screen: Does the patient meet any 2 criteria? No. Patient's initial sepsis screen is negative. Does the patient have a suspected source of infection? No. Patient's initial sepsis screen is negative. Care prior to arrival: None. 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 - Social history:: Smoking status: Patient/guardian denies using tobacco, never smoked, Patient/guardian denies using alcohol, street drugs. - Ebola Screening: : Patient negative for fever greater than or equal to 101.5 degrees Fahrenheit, and additional compatible Ebola Virus Disease symptoms Patient denies exposure to infectious person Patient denies travel to an Ebola-affected area in the 21 days before illness onset. Screenin:06 Abuse screen: Denies threats or abuse. Denies injuries from another. Nutritional tl1 screening: No deficits noted. Tuberculosis screening: No symptoms or risk factors identified. Fall Risk None identified. Assessment: 00:05 General: Appears in no apparent distress. Behavior is calm, cooperative, appropriate tl1 for age. Pain: Complains of pain in left arm. Neuro: Level of Consciousness is awake, alert, obeys commands. Cardiovascular: Denies chest pain. Respiratory: Airway is patent Trachea midline Respiratory effort is even, unlabored, Breath sounds are clear bilaterally. GI: No signs and/or symptoms were reported involving the gastrointestinal system. Derm: Wound noted left arm Wound is surgical incision. Vital Signs: 00:04 BP 126 / 58; Pulse 65; Resp 16; Temp 98.1; Pulse Ox 100% ; Weight 124.74 kg; Height 5 tl1 ft. 5 in. (165.10 cm); Pain 6/10; 00:04 Body Mass Index 45.76 (124.74 kg, 165.10 cm) tl1 ED Course: 03/11 23:47 Patient arrived in ED. do 23:48 Reyes Reaves DO is Private Physician. do 23:49 Matt Fuentes PA is PHCP. jr8 23:49 Kalyan Fischer MD is Attending Physician. jr8 23:56 Jillian Fischer RN is Primary Nurse. tl1 23:58 Triage completed. tl1 03/12 00:05 Arm band placed on right wrist. tl1 00:06 No provider procedures requiring assistance completed. Patient did not have IV access tl1 during this emergency room visit. 00:07 Patient has correct armband on for positive identification. Bed in low position. Call tl1 light in reach. Side rails up X 1. Administered Medications: No medications were administered Outcome: 03/11 23:56 Discharge ordered by . jr8 03/12 00:06 Discharged to home ambulatory, with family. tl1 Condition: good Discharge instructions given to patient, family, Instructed on discharge instructions, follow up and referral plans. Demonstrated understanding of instructions, follow-up care, wound care. 00:07 Patient left the ED. tl1 Signatures: Matt Fuentes PA PA jrJillian Briones, LAMONT RN tl1 [facility] [place]os do
== END 2019-03-12 00:07 | disposition home or self-care (01) ==
LOC: ER 23:45
DX: Z48.01 Encounter for change or removal of surgical wound dressing (principal); E11.9 Type 2 diabetes mellitus without complications; Z79.4 Long term (current) use of insulin
CPT/HCPCS: 99281